=== PATIENT | male | born 1980 | race Caucasian/White ===

== ENCOUNTER 2017-11-12 20:40 | Emergency (ER) | payer SELFPAY ==
[2017-11-12 21:38] VITALS: BP 147/73
--- NOTE | 2017-11-12 23:06 | ER Document Report ---
ED Medical Screen (RME) - General Chief Complaint: Overdose Stated Complaint: POSSIBLE OVERDOSE Time Seen by Provider: 11/12/17 23:05 Mode of Arrival: Ambulatory Information source: Law Enforcement Notes: 37-year-old male presents to ED for taking 1 Suboxone while in police custody. He states he takes Suboxone on a regular basis and while in the process of getting arrested he was beat up and in pain so he took his Suboxone. The police brought him to the emergency room to get cleared. He states he took the Suboxone about 7 PM. He says he is not having any side effects he takes this on a regular basis and he did not want to get sick is why he took it. I have greeted and performed a rapid initial assessment of this patient. A comprehensive ED assessment and evaluation of the patient, analysis of test results and completion of medical decision making process will be conducted by an additional ED providers. TRAVEL OUTSIDE OF THE [place] IN LAST 30 DAYS: No Physical Exam - Vital signs Vitals: Temp Pulse Resp BP Pulse Ox 98.0 F 70 12 147/73 H 97 11/12/17 21:36 11/12/17 21:36 11/12/17 21:36 11/12/17 21:36 11/12/17 21:36 Course - Vital Signs Vital signs: Temp Pulse Resp BP Pulse Ox 98.0 F 70 12 147/73 H 97 11/12/17 21:36 11/12/17 21:36 11/12/17 21:36 11/12/17 21:36 11/12/17 21:36
[2017-11-13] LABS: APPEARANCE,URINE CLEAR; BILIRUBIN,URINE NEGATIVE (NEGATIVE); COLOR,URINE YELLOW; GLUCOSE, URINE NEGATIVE (NEGATIVE); KETONES,URINE NEGATIVE (NEGATIVE); LEUKOCYTE ESTERASE,URINE NEGATIVE (NEGATIVE); NITRITE,URINE NEGATIVE (NEGATIVE); PROTEIN,URINE NEGATIVE (NEGATIVE); URINE SPECIFIC GRAVITY 1.014; UROBILINOGEN,URINE NEGATIVE mg/dL (<2.0)
[2017-11-13 00:14] LABS: URINE BARBITURATES SCREEN NEGATIVE; URINE BENZODIAZEPINES SCREEN NEGATIVE; URINE COCAINE SCREEN NEGATIVE; URINE MARIJUANA (THC) SCREEN NEGATIVE; URINE METHADONE SCREEN NEGATIVE; URINE PHENCYCLIDINE SCREEN NEGATIVE
--- NOTE | 2017-11-13 00:26 | ER Document Report ---
HPI - HPI Pain Level: Denies Notes: Patient is a 37-year-old male with a history of chronic narcotic issues who presents the ED with [facility] for a medical clearance. Sure states that patient took a Suboxone just prior to being arrested. According to the patient he has been on Suboxone chronically and wanted to take it as he was in pain and did not want to go through any withdrawal symptoms. Otherwise he has no other concerns or complaints and is feeling well. No SI/HI. Patient states that he has been eating and drinking without difficulties. He is urinating normally and having normal bowel movements. Denies any headache, fever, head injury, neck pain, LOC, changes in vision/speech/mentation/hearing, URI, sore throat, chest pain, palpitations, syncope, cough, shortness of breath, wheeze, dyspnea, abdominal pain, nausea/vomiting/diarrhea, urinary retention, dysuria, hematuria, loss of control of bowel or bladder, numbness/tingling, saddle anesthesia, muscle paralysis/weakness, or rash. - ROS Systems Reviewed and Negative: Yes All other systems reviewed and negative Past Medical History - General Information source: Law Enforcement - Social History Smoking Status: Unknown if Ever Smoked Family History: Reviewed & Not Pertinent Vertical Provider Document - CONSTITUTIONAL Agree With Documented VS: Yes Notes: PHYSICAL EXAMINATION: GENERAL: Well-appearing, well-nourished and in no acute distress. A&Ox4. Answers questions appropriately. HEAD: Atraumatic, normocephalic. EYES: Pupils equal round and reactive to light, extraocular movements intact, sclera anicteric, conjunctiva are normal. ENT: EAC clear b/l. TM's intact b/l without erythema, fluid, or perforation. Nares patent and without discharge. oropharynx clear without exudates. No tonsilar hypertrophy or erythema. Moist mucous membranes. No sinus tenderness. NECK: Normal range of motion, supple without lymphadenopathy LUNGS: Breath sounds clear to auscultation bilaterally and equal. No wheezes rales or rhonchi. HEART: Regular rate and rhythm without murmurs, rubs, gallops. ABDOMEN: Soft, nontender, nondistended abdomen. No guarding, no rebound. No masses appreciated. Normal bowel sounds present. No CVA tenderness bilaterally. Musculoskeletal: FROM to passive/active. Strength 5+/5. Extremities: No cyanosis, clubbing, or edema b/l. Peripheral pulses 2+. Capillary refill less than 3 seconds. NEUROLOGICAL: MMSE intact. Cranial nerves grossly intact. Normal speech, normal gait. Normal sensory, motor exams PSYCH: Normal mood, normal affect. SKIN: Warm, Dry, normal turgor, no rashes or lesions noted. - INFECTION CONTROL TRAVEL OUTSIDE OF THE [place] IN LAST 30 DAYS: No - RESPIRATORY O2 Sat by Pulse Oximetry: 97 Course - Re-evaluation Re-evalutation: 11/13/17 00:31 Patient is an afebrile, well-hydrated, 37-year-old male who presents ED for a worried well visit. Vitals are stable. PE is otherwise unremarkable. Urinalysis was unremarkable for any acute pathology. Urine drug screen was performed and opiates was noted. Patient does take Suboxone as well. No other labs or imaging warranted at this time based on H&P. No other lab testing warranted. No SI/HI. No other acute systemic condition suspected at this time. Recheck with a provider in 3-5 days. Return to the ED with any worsening /concerning symptoms otherwise as reviewed discharge. 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 - Vital Signs Vital signs: Temp Pulse Resp BP Pulse Ox 98.0 F 70 12 147/73 H 97 11/12/17 21:36 11/12/17 21:36 11/12/17 21:36 11/12/17 21:36 11/12/17 21:36 Discharge - Discharge Clinical Impression: Worried well Condition: Stable Disposition: HOME, SELF-CARE Additional Instructions: Maintain adequate fluid and food intake Tylenol/Motrin if needed Recheck with provider in 2-3 days Return to the ED with any worsening symptoms and/or development of fever, headache, chest pain, palpitations, syncope, shortness of breath, trouble breathing, abdominal pain, n/v/d, blood in stool/urine, loss of control of bowel /bladder, urinary retention, muscle weakness/paralysis, saddle anesthesia, numbness/tingling, or other worsening symptoms that are concerning to you. Forms: Elevated Blood Pressure Referrals: [facility] [Provider Group] - Follow up as needed [facility] [Provider Group] - Follow up as needed
== END 2017-11-13 00:38 | disposition home or self-care (01) ==
LOC: ER 20:40
DX: Z71.1 Person with feared health complaint in whom no diagnosis is made (principal); F19.10 Other psychoactive substance abuse, uncomplicated; Z79.899 Other long term (current) drug therapy
CPT/HCPCS: 80307; 81001; 99283

== ENCOUNTER 2020-08-21 11:02 | Emergency (ER) | payer SELFPAY ==
[2020-08-21] MEDS ORDERED: HYDROCODONE/ACETAMINOPHEN 5-325 MG TABLET PO ONE (12:08)
--- NOTE | 2020-08-21 12:10 | ER Document Report ---
ED Medical Screen (RME) - General Chief Complaint: Arm Pain Stated Complaint: ARM SWOLLEN, SKIN PROBLEM Time Seen by Provider: 08/21/20 12:04 Mode of Arrival: Ambulatory Information source: Patient Notes: 40-year-old male presented to ED for red swollen tight right forearm. He states he was stung by a stingray a week ago he did not get follow-up treatment. He states that the arm started swelling about 3 days ago. He states within the last 24 hours he has noticed that the arm has been getting larger by the elbow. He states the pain is after changing. He has movement to the left fingers but states is hard to move them. His left hand is cold. Patient is alert oriented respirations regular nonlabored speaking in full sentences. I have told the charge nurse concerning the condition of this arm. I have asked her to get him a room promptly. I have greeted and performed a rapid initial assessment of this patient. A comprehensive ED assessment and evaluation of the patient, analysis of test results and completion of medical decision making process will be conducted by an additional ED providers. TRAVEL OUTSIDE OF THE [place] IN LAST 30 DAYS: No - Related Data Allergies/Adverse Reactions: No Known Allergies Allergy (Verified 08/21/20 12:06) Physical Exam - Vital signs Vitals: Temp Pulse Resp BP Pulse Ox 98.0 F 108 H 18 124/67 100 08/21/20 11:43 08/21/20 11:43 08/21/20 11:43 08/21/20 11:43 08/21/20 11:43 Course - Vital Signs Vital signs: Temp Pulse Resp BP Pulse Ox 98.0 F 108 H 18 124/67 100 08/21/20 11:43 08/21/20 11:43 08/21/20 11:43 08/21/20 11:43 08/21/20 11:43
--- NOTE | 2020-08-21 13:11 | RADIOLOGY REPORT (SQ) ---
EXAM DESCRIPTION: FOREARM RIGHT IMAGES COMPLETED DATE/TIME: 08/21/2020 12:40 pm REASON FOR STUDY: By stingray week ago now infected COMPARISON: None. NUMBER OF VIEWS: Two views. TECHNIQUE: Two radiographic images acquired of the right forearm, including elbow and wrist in at le ast one projection. LIMITATIONS: None. FINDINGS: MINERALIZATION: Normal. BONES: No acute fracture. No worrisome bone lesions. SOFT TISSUES: There is soft tissue swelling at the area marked. No radiopaque foreign body is seen. OTHER: No other significant finding. IMPRESSION: Soft tissue swelling. No foreign body is seen. No osseous abnormality. TECHNICAL DOCUMENTATION: JOB ID: [id number] 2010 CD[employer]- All Rights Reserved Reading location - IP/workstation name: [email or web address]
[2020-08-21 13:20] LABS: ABSOLUTE BASOPHILS # (AUTO) 0.1 10^3/uL (0.0-0.2); ABSOLUTE MONOCYTES (AUTO) 1.9 10^3/uL (0.1-1.4); ABSOLUTE NEUT (AUTO) 15.5 10^3/uL (1.7-8.2); BASOPHILS % (AUTO) 0.4 % (0-2); HEMATOCRIT 37.9 % (37.9-51.0); HEMOGLOBIN 12.8 g/dL (13.5-17.0); LYMPHOCYTES % (AUTO) 5.6 % (13-45); MEAN CORPUSCULAR HEMOGLOBIN 28.1 pg (27.0-33.4); MEAN CORPUSCULAR HGB CONC 33.7 g/dL (32.0-36.0); MEAN CORPUSCULAR VOLUME 84 fl (80-97); MONOCYTES % (AUTO) 10.3 % (3-13); PLATELET COUNT 206 10^3/uL (150-450); RED BLOOD COUNT 4.54 10^6/uL (4.35-5.55); RED CELL DISTRIBUTION WIDTH 13.5 % (11.5-14.0); SEGMENTED NEUTROPHILS % (AUTO) 83.7 % (42-78); TOTAL CELLS COUNTED % (AUTO) 100 %; WHITE BLOOD COUNT 18.6 10^3/uL (4.0-10.5)
[2020-08-21 13:40] LABS: ALBUMIN 3.8 g/dL (3.5-5.0); ALKALINE PHOSPHATASE 75 U/L (38-126); ANION GAP 9 (5-19); ASPARTATE AMINO TRANSFERASE 48 U/L (17-59); BILIRUBIN,DIRECT 0.1 mg/dL (0.0-0.4); BILIRUBIN,TOTAL 0.7 mg/dL (0.2-1.3); BLOOD UREA NITROGEN 16 mg/dL (7-20); CARBON DIOXIDE 28 mmol/L (22-30); CHLORIDE 98 mmol/L (98-107); GLUCOSE 130 mg/dL (75-110); POTASSIUM 4.2 mmol/L (3.6-5.0)
[2020-08-21] MEDS ORDERED: DIPH/PERTUSS(ACELL)/TETANUS VAC/PF 0.5 ML SYR (>=10YO) IM ONE (14:11)
[2020-08-21] MEDS ORDERED: KETOROLAC TROMETHAMINE 60 MG/2 ML SDV IM ONE (14:11)
[2020-08-21] MEDS ORDERED: CEFAZOLIN 2 GM/D5W RTU 2 GM/50 ML RTUPB IV ONE (14:15)
--- NOTE | 2020-08-21 14:21 | ER Document Report ---
ED General - General Chief Complaint: Arm Pain Stated Complaint: ARM SWOLLEN, SKIN PROBLEM Time Seen by Provider: 08/21/20 12:04 Mode of Arrival: Ambulatory TRAVEL OUTSIDE OF THE [place] IN LAST 30 DAYS: No - HPI Notes: Chief complaint: Infected wound from stingray History of present illness: 40-year-old male presented to ED for pain, redness and swelling of right forearm. He was reportedly stung by a stingray a week ago while surf fishing with his father locally he did not get follow-up treatment. He indicates that the arm started swelling about 3 days ago. Rapid progression of swelling proximally past 24 hours. Increasing pain which is currently rated 10/10. Pain aggravated by movement of fingers. Last tetanus booster greater than 5 years ago. No known allergies. No current medications. - Related Data Allergies/Adverse Reactions: No Known Allergies Allergy (Verified 08/21/20 12:06) Past Medical History - General Information source: Patient, [facility] Records - Social History Smoking Status: Never Smoker Frequency of alcohol use: None Drug Abuse: None Occupation: horticulture worker Family History: Reviewed & Not Pertinent - Medical History Medical History: Negative Review of Systems - Review of Systems Notes: Constitutional: Negative for fever. HENT: Negative for sore throat. Eyes: Negative for visual changes. Cardiovascular: Negative for chest pain. Respiratory: Negative for shortness of breath. Gastrointestinal: Negative for abdominal pain, vomiting or diarrhea. Genitourinary: Negative for dysuria. Musculoskeletal: As per HPI. Skin: Negative for rash. Neurological: Negative for headaches, weakness or numbness. 10 point ROS negative except as marked above and in HPI. Physical Exam - Vital signs Vitals: Temp Pulse Resp BP Pulse Ox 98.0 F 108 H 18 124/67 100 08/21/20 11:43 08/21/20 11:43 08/21/20 11:43 08/21/20 11:43 08/21/20 11:43 - General Notes: GENERAL: Slender male approximately stated age appears moderately uncomfortable. SKIN: Good turgor no rashes. HEAD: Normocephalic atraumatic. EYES: PERRLA. EOMI. Conjunctivae and sclerae clear. EARS: CANALS AND TMS CLEAR. NOSE: CLEAR. MOUTH: Moist mucosa. Good dentition. No stridor or edema. No drooling. NECK: Supple. No masses or thyromegaly. No adenopathy. Carotids 2+ without bruits. No JVD. BACK: Symmetrical without tenderness. CHEST: Respirations unlabored. Breath sounds clear and symmetrical. HEART: Regular rhythm. No murmur gallop or rub. ABDOMEN: Soft nontender without masses, organomegaly or rebound. Bowel sounds normally active. No bruits. GENITALIA: Deferred. EXTREMITIES: Patient has a 3.5 cm puncture wound mid radial aspect of right forearm with associated fluctuance, redness, tenderness and warmth. There is no spontaneous drainage. He has red streaking and edema extending proximally and distally. Distal sensation and capillary refill are intact. No edema. No calf tenderness. Cap refill less than 1.5 seconds. Dorsalis pedis and posterior tibial pulses 3+ and symmetrical. NEUROLOGICAL: GCS 15. Alert and oriented x3. Normal gait. Fluent speech. Cranial nerves II through XII intact. Sensorimotor and cerebellar normal. Normal tone. PSYCHIATRIC: Appropriate affect. Course - Re-evaluation Re-evalutation: 08/21/20 16:11 IV Ancef. Tetanus booster. IV Toradol. I&D. 08/21/20 16:18 Findings were discussed with on-call orthopedist, Dr. Rutherford, who agrees with current management and also with my plan to see this gentleman back tomorrow here for follow-up. Findings, clinical impression and plan of treatment have been discussed with patient/family. Understanding of current findings and recommendations has been acknowledged by them and there is agreement regarding disposition and follow-up. - Vital Signs Vital signs: Temp Pulse Resp BP Pulse Ox 98.0 F 108 H 18 124/67 100 08/21/20 11:43 08/21/20 11:43 08/21/20 11:43 08/21/20 11:43 08/21/20 11:43 - Laboratory Result Diagrams: 08/21/20 13:03 08/21/20 13:03 Laboratory results interpreted by me: 08/21/20 08/21/20 13:03 13:03 WBC 18.6 H Hgb 12.8 L Lymph % (Auto) 5.6 L Absolute Neuts (auto) 15.5 H Absolute Monos (auto) 1.9 H Seg Neutrophils % 83.7 H Sodium 135.2 L Glucose 130 H ALT 91 H Procedures - Incision and Drainage Right Lower Arm Time completed: 15:45 - I&D forearm abscess Type: Simple Anesthetic type: 1% Lidocaine mL's of anesthetic: 10 Blade size: 11 I&D procedure: Betadine prep applied, Shurclens applied, Iodoform packing placed Incision Method: Incision made by scalpel Amount/type of drainage: 10 Notes: 08/21/20 16:10 Irriagated 1 liter Sterile saline Discharge - Discharge Clinical Impression: Abscess of right forearm, Cellulitis of right forearm, Stingray envenomation Condition: Stable Disposition: HOME, SELF-CARE Instructions: Abscess ([facility]), Post Incision and Drainage, Oral Narcotic Medication ([facility]) Additional Instructions: Return here as needed for new or worsening symptoms: Pain that is worsening or unimproved Uncontrolled vomiting High fever or shaking chills Overall worsening Come to the emergency department tomorrow to be rechecked. Take prescribed medication as directed. Prescriptions: Doxycycline Monohydrate 100 mg PO BID #20 capsule Oxycodone HCl/Acetaminophen [Percocet 5-325 mg Tablet] 1 tab PO Q6H PRN 3 Days #15 tablet PRN Reason:
[2020-08-21] MEDS ORDERED: LIDOCAINE 1% INJ-PF (10 MG/ML) 30 ML SDV INJ ONE (14:36)
[2020-08-21 16:39] VITALS: BP 117/79
== END 2020-08-21 16:38 | disposition home or self-care (01) ==
LOC: ER 11:02
DX: L02.413 Cutaneous abscess of right upper limb (principal); T63.511A Toxic effect of contact with stingray, accidental (unintentional), initial encounter; L03.113 Cellulitis of right upper limb; Y92.832 Beach as the place of occurrence of the external cause; Z23 Encounter for immunization
CPT/HCPCS: 99284; 96372; 90471; 96365; 36415; 87040; 85025; 87077; 80053; 87150 ×26; 73090; 90715; 10060; J1885; J3490; J0690

== ENCOUNTER 2020-08-22 08:55 | Inpatient (IN) | payer OTHER ==
--- NOTE | 2020-08-22 09:39 | ER Document Report ---
ED General - General Chief Complaint: Wound Recheck Stated Complaint: WOUND RECHECK Time Seen by Provider: 08/22/20 09:39 Mode of Arrival: Ambulatory Information source: Patient Notes: Patient is a 40-year-old male presenting to the emergency department chief complaint of wound check. Patient states that about a week ago he was stung by a stingray he was seen here at this hospital yesterday for swelling to the right upper extremity had incision and drainage of the site however today states that the swelling is worse the pain is worse and is here for reevaluation. Patient further states that he has not been able to miner pick his prescription of antibiotics or pain medicine because of time constraints last evening. Patient has no other complaints no nausea vomiting diarrhea fevers chills cough or cold symptoms. TRAVEL OUTSIDE OF THE [place] IN LAST 30 DAYS: No - HPI Onset: Last week Onset/Duration: Persistent, Worse Quality of pain: Throbbing Severity: Moderate Pain Level: 4 Associated symptoms: None Exacerbated by: Movement Relieved by: Denies Similar symptoms previously: Yes Recently seen / treated by doctor: Yes - Related Data Allergies/Adverse Reactions: No Known Allergies Allergy (Verified 08/21/20 12:06) Past Medical History - General Information source: Patient, [facility] Records - Social History Smoking Status: Never Smoker Chew tobacco use (# tins/day): No Frequency of alcohol use: Rare Drug Abuse: None Family History: Reviewed & Not Pertinent Patient has suicidal ideation: No Patient has homicidal ideation: No Review of Systems - Review of Systems Constitutional: No symptoms reported EENT: No symptoms reported Cardiovascular: No symptoms reported Respiratory: No symptoms reported Gastrointestinal: No symptoms reported Genitourinary: No symptoms reported Male Genitourinary: No symptoms reported Musculoskeletal: See HPI Skin: No symptoms reported Hematologic/Lymphatic: See HPI Neurological/Psychological: No symptoms reported -: Yes All other systems reviewed and negative Physical Exam - Vital signs Vitals: Temp Pulse Resp BP Pulse Ox 98.8 F 84 18 123/62 100 08/22/20 08:59 08/22/20 08:59 08/22/20 08:59 08/22/20 08:59 08/22/20 08:59 - Notes Notes: PHYSICAL EXAMINATION: GENERAL: Well-appearing, well-nourished and in no acute distress. HEAD: Atraumatic, normocephalic. EYES: Pupils equal round and reactive to light, extraocular movements intact, sclera anicteric, conjunctiva are normal. ENT: nares patent, oropharynx clear without exudates. Moist mucous membranes. NECK: Normal range of motion, supple without lymphadenopathy, no appreciable JVD LUNGS: Lungs clear to auscultation bilaterally and equal. No wheezes rales or rhonchi. HEART: Tachycardic rate and rhythm without murmurs ABDOMEN: Soft, nontender, normal bowel sounds. No guarding, no rebound. No masses appreciated. EXTREMITIES: Active full range of motion x3, no pitting or edema. No cyanosis. 2+ pulses x4. Abnormality is right upper extremity is markedly swollen erythematous and painful both with and without palpation. Patient is only able to flex and extend at the digits approximately 1 cm capillary refill less than 3 seconds. The area of erythema is from the tip of the fingers to mid axillary. This area was marked with a pen. NEUROLOGICAL: No focal neurological deficits. Moves all extremities spontaneously and on command. SKIN: Warm, Dry, and intact. Normal turgor, no rashes or lesions noted. Except as stated above Course - Re-evaluation Re-evalutation: 08/22/20 11:17 At 11 AM I was able to speak with Dr. Rutherford orthopedics on-call he has requested that the patient have an MRI of the right upper extremity to evaluate for possible deep fluid collection. Shortly thereafter I spoke with the hospitalist who is going to come down and evaluate the patient. Subsequently I was able to walk-in and let the patient know his status as of right now I have reviewed his laboratory studies and patient is feeling somewhat better he is currently resting and is agreeable and aware of the need for admission. 08/22/20 11:43 At this time I spoke to the hospitalist who is agreeable with admission of the patient. Currently pending MRI of right upper extremity and evaluation by orthopedics. - Vital Signs Vital signs: Temp Pulse Resp BP Pulse Ox 98.8 F 84 18 123/62 100 08/22/20 08:59 08/22/20 08:59 08/22/20 08:59 08/22/20 08:59 08/22/20 08:59 - Laboratory Result Diagrams: 08/22/20 10:08 08/22/20 10:08 Laboratory results interpreted by me: 08/22/20 08/22/20 10:08 10:08 WBC 12.5 H Hgb 12.4 L Hct 36.6 L Lymph % (Auto) 6.7 L Absolute Neuts (auto) 10.3 H Seg Neutrophils % 82.8 H Sodium 132.2 L Glucose 138 H ALT 78 H Total Protein 6.1 L Albumin 3.2 L - Diagnostic Test Radiology reviewed: Pending, Reports reviewed Discharge - Discharge Clinical Impression: Cellulitis of right forearm, Swelling of right upper extremity Condition: Fair Disposition: ADMITTED OBSERVATION Admitting Provider: Renée (Hospitalist) Unit Admitted: Medical Floor
[2020-08-22] MEDS ORDERED: MORPHINE SULFATE 10 MG/ML INJ IV ONE ×2 (09:56→12:47)
[2020-08-22] MEDS ORDERED: ONDANSETRON HCL INJ/PF 4 MG/2 ML SDV IV ONE (09:56)
[2020-08-22] MEDS ORDERED: CEFTRIAXONE 1 GM/D5W RTU 1 GM/50 ML RTUPB IV ONE (10:04)
[2020-08-22 10:28] LABS: ABSOLUTE LYMPHOCYTES (AUTO) 0.8 10^3/uL (0.5-4.7); ABSOLUTE MONOCYTES (AUTO) 1.2 10^3/uL (0.1-1.4); ABSOLUTE NEUT (AUTO) 10.3 10^3/uL (1.7-8.2); BASOPHILS % (AUTO) 0.4 % (0-2); EOSINOPHILS % (AUTO) 0.1 % (0-6); HEMATOCRIT 36.6 % (37.9-51.0); HEMOGLOBIN 12.4 g/dL (13.5-17.0); LYMPHOCYTES % (AUTO) 6.7 % (13-45); MEAN CORPUSCULAR HEMOGLOBIN 28.1 pg (27.0-33.4); MEAN CORPUSCULAR HGB CONC 33.9 g/dL (32.0-36.0); MEAN CORPUSCULAR VOLUME 83 fl (80-97); PLATELET COUNT 190 10^3/uL (150-450); RED BLOOD COUNT 4.42 10^6/uL (4.35-5.55); RED CELL DISTRIBUTION WIDTH 13.6 % (11.5-14.0); SEGMENTED NEUTROPHILS % (AUTO) 82.8 % (42-78); TOTAL CELLS COUNTED % (AUTO) 100 %; WHITE BLOOD COUNT 12.5 10^3/uL (4.0-10.5)
[2020-08-22 10:42] LABS: INTERNATIONAL RATION (INR) 1.19; PROTHROMBIN TIME 15.3 SEC (11.4-15.4)
[2020-08-22 10:51] LABS: ALBUMIN 3.2 g/dL (3.5-5.0); ALKALINE PHOSPHATASE 72 U/L (38-126); ANION GAP 7 (5-19); ASPARTATE AMINO TRANSFERASE 45 U/L (17-59); BILIRUBIN,DIRECT 0.2 mg/dL (0.0-0.4); BILIRUBIN,TOTAL 0.6 mg/dL (0.2-1.3); BLOOD UREA NITROGEN 12 mg/dL (7-20); CALCIUM 8.5 mg/dL (8.4-10.2); CARBON DIOXIDE 26 mmol/L (22-30); CHLORIDE 99 mmol/L (98-107); GLUCOSE 138 mg/dL (75-110); POTASSIUM 3.8 mmol/L (3.6-5.0); TOTAL PROTEIN 6.1 g/dL (6.3-8.2)
[2020-08-22] MEDS ORDERED: ACETAMINOPHEN 325 MG TABLET PO PRN (11:41)
[2020-08-22] MEDS ORDERED: CEFAZOLIN 2 GM/D5W RTU 2 GM/50 ML RTUPB IV SCH (12:00)
[2020-08-22] MEDS: DOXYCYCLINE HYCLATE 100 MG in DEXTROSE 5%-WATER 250 ML IV SCH ×2 (13:13→22:08)
--- NOTE | 2020-08-22 14:50 | PDOC CONSULTATION ---
Consultation Consult Date: 08/22/20 Provider Consulted: BILLIE GRIFFIN History of Present Illness Admission Date/PCP: 08/22/20 12:04 Patient complains of: Right forearm infection History of Present Illness: JOSE THOMAS is a 40 year old male who sustained a puncture wound to his right forearm this past weekend he then presented to emergency room yesterday 08/21/2020 with a superficial abscess. Bedside irrigation debridement was performed and patient was started on doxycycline. Patient states over the next 24 hours his symptoms did not improve continued to have significant pain swelling and redness. Patient presents emergency room once again where he was started on IV antibiotics he states these antibiotics did improve his pain although continues to have swelling and redness. Denies numbness or tingling but has difficulty moving his finger secondary to the pain. Pain 5/5. Notes fever and chills. Social History Smoking Status: Never Smoker Family History Family History: Reviewed & Not Pertinent Parental Family History Reviewed: No Children Family History Reviewed: No Sibling(s) Family History Reviewed.: No Medication/Allergy Home Medications: Doxycycline Monohydrate 100 mg PO BID #20 capsule 08/21/20 Oxycodone HCl/Acetaminophen [Percocet 5-325 mg Tablet] 1 tab PO Q6H PRN 3 Days #15 tablet 08/21/20 Allergies/Adverse Reactions: No Known Allergies Allergy (Verified 08/21/20 12:06) Review of Systems Constitutional: PRESENT: as per HPI. ABSENT: chills, fever(s), headache(s), weight gain, weight loss Eyes: ABSENT: visual disturbances Ears: ABSENT: hearing changes Cardiovascular: ABSENT: chest pain, dyspnea on exertion, edema, orthropnea, palpitations Respiratory: ABSENT: cough, hemoptysis Gastrointestinal: ABSENT: abdominal pain, constipation, diarrhea, hematemesis, hematochezia, nausea, vomiting Genitourinary: ABSENT: dysuria, hematuria Integumentary: ABSENT: rash, wounds Neurological: ABSENT: abnormal gait, abnormal speech, confusion, dizziness, focal weakness, syncope Psychiatric: ABSENT: anxiety, depression, homidical ideation, suicidal ideation Endocrine: ABSENT: cold intolerance, heat intolerance, menstrual abnormalities, polydipsia, polyuria Hematologic/Lymphatic: ABSENT: easy bleeding, easy bruising, lymphadenopathy Physical Exam Vital Signs: Temp Pulse Resp BP Pulse Ox 99.5 F 76 15 112/53 L 98 08/22/20 13:22 08/22/20 13:22 08/22/20 13:22 08/22/20 13:22 08/22/20 13:22 Intake & Output 08/21/20 08/22/20 08/23/20 06:59 06:59 06:59 Intake Total 50 Balance 50 Weight 86.2 kg General appearance: PRESENT: no acute distress, well-developed, well-nourished Head exam: PRESENT: atraumatic, normocephalic Eye exam: PRESENT: conjunctiva pink, EOMI, PERRLA. ABSENT: scleral icterus Ear exam: PRESENT: normal external ear exam Mouth exam: PRESENT: moist, tongue midline Neck exam: PRESENT: full ROM. ABSENT: carotid bruit, JVD, lymphadenopathy, thyromegaly Cardiovascular exam: PRESENT: RRR. ABSENT: diastolic murmur, rubs, systolic murmur Pulses: PRESENT: normal dorsalis pedis pul, +2 pedal pulses bilateral Vascular exam: PRESENT: normal capillary refill GI/Abdominal exam: PRESENT: normal bowel sounds, soft. ABSENT: distended, guarding, mass, organolmegaly, rebound, tenderness Rectal exam: PRESENT: deferred Musculoskeletal exam: PRESENT: other - compressible no sign of compartment s yndrome. Additional comments: Right forearm: 3 cm incision noted along the dorsal aspect of the forearm with surrounding erythema. Erythema improving compared to demarcated area. Palpable axillary lymph node. Tenderness with palpation. Compartments swollen but compressible no sign of compartment syndrome. Intact IP/MP flexion/extension. EPL/FPL intact however patient unable to make full composite fist. Radial pulse 2+. Cap refill less than 2 seconds. Mild pain posteriorly with passive stretch. Neurological exam: PRESENT: alert, awake, oriented to person, oriented to place, oriented to time, oriented to situation, CN II-XII grossly intact. ABSENT: motor sensory deficit Psychiatric exam: PRESENT: appropriate affect, normal mood. ABSENT: homicidal ideation, suicidal ideation Skin exam: PRESENT: dry, intact, warm. ABSENT: cyanosis, rash Results Laboratory Results: 08/22/20 10:08 08/22/20 10:08 08/22/20 08/22/20 08/22/20 10:08 10:08 10:08 WBC 12.5 H RBC 4.42 Hgb 12.4 L Hct 36.6 L MCV 83 MCH 28.1 MCHC 33.9 RDW 13.6 Plt Count 190 Seg Neutrophils % 82.8 H Sodium 132.2 L Potassium 3.8 Chloride 99 Carbon Dioxide 26 Anion Gap 7 BUN 12 Creatinine 0.58 Est GFR ( Amer) > 60 Glucose 138 H Lactic Acid 1.6 Calcium 8.5 Total Bilirubin 0.6 AST 45 Alkaline Phosphatase 72 Total Protein 6.1 L Albumin 3.2 L Assessment & Plan - Diagnosis (1) Abscess of right forearm Is this a current diagnosis for this admission?: Yes Plan: Patient has evidence of persistent right forearm abscess despite irrigation and debridement yesterday the emergency room his symptoms have worsened. At this point I have recommended obtaining MRI to evaluate for deeper fluid collection in the meantime he only should be prepared for surgery which would include irrigation Erin of the right forearm. Risk and benefits of surgical procedure have been explained patient is verbalized understanding consented for surgical p rocedure. Risk of surgical procedure neurovascular is, postoperative pain, postoperative stiffness, worsening infection requiring additional surgical intervention. Rapid Covid test will be performed in anticipation for surgical procedure. Patient will be admitted for IV antibiotics as well.
[2020-08-22] MEDS: CEFAZOLIN SODIUM 2 GM in DEXTROSE 5%-WATER 100 ML IV SCH ×2 (15:19→22:07)
[2020-08-22] MEDS ORDERED: FENTANYL CITRATE INJ/PF 100 MCG/2 ML AMPUL ONE (17:20)
[2020-08-22] MEDS ORDERED: MIDAZOLAM 2 MG/2 ML INJ ONE (17:20)
[2020-08-22] MEDS ORDERED: PROPOFOL INJ 200 MG/20 ML VIAL IV ONE (17:21)
[2020-08-22] MEDS ORDERED: BUPIVACAINE HCL 0.5 % INJ/PF 30 ML SDV ONE (17:22)
[2020-08-22] MEDS ORDERED: BACITRACIN INJ 50,000 UNIT VIAL ONE (17:23)
[2020-08-22] MEDS ORDERED: PROMETHAZINE HCL INJ 25 MG/1 ML VIAL IV PRN ×2 (17:57)
[2020-08-22] MEDS ORDERED: DIPHENHYDRAMINE HCL 50 MG/ML VIAL IV PRN (17:57)
[2020-08-22] MEDS ORDERED: FENTANYL CITRATE INJ/PF 100 MCG/2 ML AMPUL IV PRN ×3 (17:57)
[2020-08-22] MEDS ORDERED: ONDANSETRON HCL INJ/PF 4 MG/2 ML SDV IV PRN ×2 (17:57→18:18)
[2020-08-22] MEDS ORDERED: MORPHINE SULFATE 10 MG/ML INJ IV PRN (17:57)
[2020-08-22] MEDS ORDERED: MEPERIDINE HCL/PF INJ 25 MG/1 ML DISP.SYRIN IV PRN (17:57)
--- NOTE | 2020-08-22 18:23 | Operative Report ---
Operative Report DATE OF SURGERY: 08/22/20 PREOPERATIVE DIAGNOSIS: Right forearm abscess POSTOPERATIVE DIAGNOSIS: Same OPERATION: Irrigation and debridement right forearm abscess SURGEON: BILLIE GRIFFIN ANESTHESIA: GA TISSUE REMOVED OR ALTERED: Aerobic anaerobic cultures COMPLICATIONS: None ESTIMATED BLOOD LOSS: Minimal PROCEDURE: Indication for above procedure: 40-year-old male who apparently sustained a stingray injury to his right forearm. Was seen at the emergency room where bedside irrigation debridement was performed however patient continued to have discomfort and swelling thus was admitted to the hospital service given patient's worsening swelling decision was made to proceed with operative intervention risk and benefits of surgical procedure were explained patient verbalized understanding consented for surgery procedure. Procedure In Detail: Patient was seen and evaluated in the preoperative holding area. The RIGHT upper extremity was initialized and marked. Patient received 2g of Ancef IV for bacterial prophylaxis. Patient was taken back to the operative room where transferred to the operative table and placed under general anesthesia. Once they were adequately anesthetized a nonsterile tourniquet was placed on the upper extremity. A surgical team debriefing was performed ensuring all instrumentation was available, the surgical procedure was discussed with possible concerns reviewed. The upper extremity was prepped with Betadine and draped in a sterile fashion. A timeout was done identifying correct patient, procedure and extremity everyone in attendance agree with this and verbalized no concerns. The extremity was elevated the tourniquet was inflated to 250 mmHg. Previous incision was extended proximally and distally 3 cm respectively. Blunt dissection was performed. There was injury to a small branch of the posterior cutaneous nerve of the forearm adjacent to the saphenous vein. Small venous tributaries were coagulated with cautery. The defect within the fascia along the ECRB and ECRL was then opened. Approximately 8 cc of purulent material was expressed there is no evidence of deep track to the bone or deep to the fascia of the extensor mechanism. There is no tracking proximal to the forearm or along the volar compartments. Any nonviable tissue deep to the fascia was excised. Aerobic and anaerobic cultures were obtained. Wound was irrigated with 1 L of normal saline with bacitracin. Tourniquet was then deflated. Residual peripheral bleeding was controlled with cautery. Skin incision was closed with interrupted 3-0 nylon suture and a [place] drain placed along the central aspect of the wound. Xeroform, gauze and soft dressing was placed. Sponge counts, instrument counts, needle counts were correct. Patient was then awoken from anesthesia. Transferred from the operating room table to the operating room stretcher. There was no intraoperative complications patient tolerated procedure well stable to PACU. Postop plan: Patient will continue on IV antibiotics until he sees clinical improvement plan will be for drain removal in 48 hours possibly discharge in 48-72 hours.
[2020-08-22] MEDS: MORPHINE SULFATE 10 MG/ML INJ ONE ×3 (18:36→18:50)
[2020-08-22] MEDS: OXYCODONE-ACETAMINOPHEN 5-325 MG TABLET PO PRN (21:56)
--- NOTE | 2020-08-22 22:03 | RADIOLOGY REPORT (SQ) ---
MR UPPER EXTREMITY WITHOUT THEN WITH IV CONTRAST HISTORY: Stingray injury. Drainage and wound in the right forearm. COMPARISON: None. TECHNIQUE: Multiplanar, multisequence MR imaging of the right forearm was performed without and with the administration of intravenous gadolinium. FINDINGS: There is diffuse subcutaneous edema with enhancement throughout the right forearm. There are multiple areas of nonenhancement, however no discrete rim-enhancing fluid collection is identified. There is surgical packing material within the dorsal subcutaneous tissues of the mid forearm. No evidence of acute fracture or osteomyelitis. There is no abnormal intramuscular signal. The visualized tendons are intact. IMPRESSION: 1. Diffuse edema overlying the right forearm which may represent cellulitis, but without evidence of abscess. 2. Surgical packing material within the subcutaneous tissues of the dorsal mid forearm. No additional foreign body is seen.
[2020-08-23] MEDS: MORPHINE SULFATE 10 MG/ML INJ IV PRN ×2 (02:06→22:57)
[2020-08-23] MEDS: CEFAZOLIN SODIUM 2 GM in DEXTROSE 5%-WATER 100 ML IV SCH ×4 (03:38→21:07)
[2020-08-23] MEDS: OXYCODONE-ACETAMINOPHEN 5-325 MG TABLET PO PRN ×3 (04:47→17:58)
[2020-08-23 05:26] LABS: HEMATOCRIT 38.3 % (37.9-51.0); HEMOGLOBIN 12.8 g/dL (13.5-17.0); MEAN CORPUSCULAR HEMOGLOBIN 27.8 pg (27.0-33.4); MEAN CORPUSCULAR HGB CONC 33.4 g/dL (32.0-36.0); MEAN CORPUSCULAR VOLUME 83 fl (80-97); PLATELET COUNT 220 10^3/uL (150-450); RED CELL DISTRIBUTION WIDTH 13.6 % (11.5-14.0); WHITE BLOOD COUNT 15.6 10^3/uL (4.0-10.5)
[2020-08-23 06:17] LABS: ANION GAP 13 (5-19); BLOOD UREA NITROGEN 7 mg/dL (7-20); CALCIUM 9.1 mg/dL (8.4-10.2); CARBON DIOXIDE 24 mmol/L (22-30); CHLORIDE 102 mmol/L (98-107); GLUCOSE 119 mg/dL (75-110); POTASSIUM 4.5 mmol/L (3.6-5.0)
--- NOTE | 2020-08-23 07:44 | PDOC PROGRESS REPORT ---
Subjective Date:: 08/23/20 Subjective:: Patient seen and examined morning. Reports continued pain. No acute events ove rnight. Reason For Visit: RIGHT ARM CELLULITIS Physical Exam Vital Signs: Temp Pulse Resp BP Pulse Ox 97.6 F 58 L 16 115/65 100 08/23/20 03:30 08/23/20 03:30 08/23/20 03:30 08/23/20 03:30 08/23/20 03:30 Intake & Output 08/22/20 08/23/20 08/24/20 06:59 06:59 06:59 Intake Total 2950 Output Total 1805 Balance 1145 Weight 80.7 kg Physical Exam: No acute distress, no x3 Right upper extremity sensation grossly intact to radial median and ulnar nerve. upper extremity motor function grossly intact to radian median ulnar nerve AIN and PIN Pulses 2+, capillary refill less than 2 seconds Compartments soft Dressing clean dry and intact Results Laboratory Results: 08/23/20 04:18 08/23/20 04:18 08/22/20 08/22/20 08/22/20 10:08 10:08 10:08 WBC 12.5 H RBC 4.42 Hgb 12.4 L Hct 36.6 L MCV 83 MCH 28.1 MCHC 33.9 RDW 13.6 Plt Count 190 Seg Neutrophils % 82.8 H Sodium 132.2 L Potassium 3.8 Chloride 99 Carbon Dioxide 26 Anion Gap 7 BUN 12 Creatinine 0.58 Est GFR ( Amer) > 60 Glucose 138 H Lactic Acid 1.6 Calcium 8.5 Total Bilirubin 0.6 AST 45 Alkaline Phosphatase 72 Total Protein 6.1 L Albumin 3.2 L 08/23/20 08/23/20 04:18 04:18 WBC 15.6 H RBC 4.60 Hgb 12.8 L Hct 38.3 MCV 83 MCH 27.8 MCHC 33.4 RDW 13.6 Plt Count 220 Seg Neutrophils % Sodium 139.1 Potassium 4.5 Chloride 102 Carbon Dioxide 24 Anion Gap 13 BUN 7 Creatinine 0.59 Est GFR ( Amer) > 60 Glucose 119 H Lactic Acid Calcium 9.1 Total Bilirubin AST Alkaline Phosphatase Total Protein Albumin Impressions: Upper Extremity MRI 08/22/20 11:06 IMPRESSION: 1. Diffuse edema overlying the right forearm which may represent cellulitis, but without evidence of abscess. 2. Surgical packing material within the subcutaneous tissues of the dorsal mid forearm. No additional foreign body is seen. Assessment & Plan - Diagnosis (1) Abscess of right forearm Is this a current diagnosis for this admission?: Yes Plan: We will follow cultures Multimodal pain control Potentially remove drain tomorrow and allow for discharge pending microbiology results. Encourage range of motion and use of the right upper extremity - Time Time Spent with patient: Less than 15 minutes
[2020-08-23] MEDS: KETOROLAC TROMETHAMINE INJ/PF 30 MG/1 ML SDV IV SCH ×3 (08:56→21:06)
[2020-08-23] MEDS: DOXYCYCLINE HYCLATE 100 MG in DEXTROSE 5%-WATER 250 ML IV SCH ×2 (11:04→22:48)
--- NOTE | 2020-08-23 15:51 | PDOC PROGRESS REPORT ---
Subjective Date:: 08/23/20 Reason For Visit: RIGHT ARM CELLULITIS Physical Exam Vital Signs: Temp Pulse Resp BP Pulse Ox 97.3 F 57 L 20 102/52 L 99 08/23/20 11:19 08/23/20 11:19 08/23/20 11:19 08/23/20 11:19 08/23/20 11:19 Intake & Output 08/22/20 08/23/20 08/24/20 06:59 06:59 06:59 Intake Total 2950 Output Total 1805 Balance 1145 Weight 80.7 kg General appearance: PRESENT: no acute distress, well-developed, well-nourished Head exam: PRESENT: atraumatic, normocephalic Eye exam: PRESENT: conjunctiva pink, EOMI, PERRLA. ABSENT: scleral icterus Ear exam: PRESENT: normal external ear exam Mouth exam: PRESENT: moist, tongue midline Neck exam: ABSENT: carotid bruit, JVD, lymphadenopathy, thyromegaly Respiratory exam: PRESENT: clear to auscultation sean. ABSENT: rales, rhonchi, wheezes Cardiovascular exam: PRESENT: RRR, +S1, +S2. ABSENT: diastolic murmur, rubs, systolic murmur Pulses: PRESENT: normal dorsalis pedis pul Vascular exam: PRESENT: normal capillary refill GI/Abdominal exam: PRESENT: normal bowel sounds, soft. ABSENT: distended, guarding, mass, organolmegaly, rebound, tenderness Rectal exam: PRESENT: deferred Extremities exam: PRESENT: other - RUE in dressing. ABSENT: calf tenderness, clubbing, pedal edema Neurological exam: PRESENT: alert, awake, oriented to person, oriented to place, oriented to time, oriented to situation, CN II-XII grossly intact. ABSENT: motor sensory deficit Psychiatric exam: PRESENT: appropriate affect, normal mood. ABSENT: homicidal ideation, suicidal ideation Skin exam: PRESENT: dry, intact, warm. ABSENT: cyanosis, rash Results Laboratory Results: 08/23/20 04:18 08/23/20 04:18 08/23/20 08/23/20 04:18 04:18 WBC 15.6 H RBC 4.60 Hgb 12.8 L Hct 38.3 MCV 83 MCH 27.8 MCHC 33.4 RDW 13.6 Plt Count 220 Sodium 139.1 Potassium 4.5 Chloride 102 Carbon Dioxide 24 Anion Gap 13 BUN 7 Creatinine 0.59 Est GFR ( Amer) > 60 Glucose 119 H Calcium 9.1 08/22/20 09:50 Arm - Right Gram Stain - Final Impressions: Upper Extremity MRI 08/22/20 11:06 IMPRESSION: 1. Diffuse edema overlying the right forearm which may represent cellulitis, but without evidence of abscess. 2. Surgical packing material within the subcutaneous tissues of the dorsal mid forearm. No additional foreign body is seen. Assessment and Plan - Diagnosis (1) Cellulitis of right forearm Is this a current diagnosis for this admission?: Yes (2) Abscess of right forearm Is this a current diagnosis for this admission?: Yes - Plan Summary Summary: His wound culture is currently growing gram-positive cocci in clusters as well as gram-negative rods. Current blood culture is currently negative however patient had blood culture on 21 August which grew Georgina Krusei. He is status post I&D of the right forearm abscess. He is on cefazolin although I do not have the sensitivities back yet. Fairly concerned that he is not on MRSA coverage however since he seems to be relatively stable I will follow the cultures closely and change antibiotics as needed. Patient also noted to have positive blood cultures for Georgina however he has absolutely no clinical symptoms I will suggest to fungemia. Blood cultures done the very next day is currently negative. Patient has not been treated with any antifungal agents. - Time Time Spent with patient: 15-24 minutes Medications reviewed and adjusted accordingly: Yes Anticipated Discharge Disposition: Home, Self Care Anticipated Discharge Timeframe: within 72 hours
[2020-08-24] MEDS: OXYCODONE-ACETAMINOPHEN 5-325 MG TABLET PO PRN ×2 (01:51→23:35)
[2020-08-24] MEDS: KETOROLAC TROMETHAMINE INJ/PF 30 MG/1 ML SDV IV SCH ×4 (03:23→21:57)
[2020-08-24] MEDS: CEFAZOLIN SODIUM 2 GM in DEXTROSE 5%-WATER 100 ML IV SCH (03:24)
[2020-08-24] MEDS ORDERED: MELATONIN 5 MG TABLET PO PRN (04:22)
[2020-08-24 05:24] LABS: HEMATOCRIT 36.6 % (37.9-51.0); HEMOGLOBIN 12.5 g/dL (13.5-17.0); MEAN CORPUSCULAR HEMOGLOBIN 28.6 pg (27.0-33.4); MEAN CORPUSCULAR HGB CONC 34.2 g/dL (32.0-36.0); MEAN CORPUSCULAR VOLUME 84 fl (80-97); PLATELET COUNT 232 10^3/uL (150-450); RED BLOOD COUNT 4.37 10^6/uL (4.35-5.55); RED CELL DISTRIBUTION WIDTH 13.6 % (11.5-14.0); WHITE BLOOD COUNT 10.5 10^3/uL (4.0-10.5)
[2020-08-24 05:40] LABS: ANION GAP 11 (5-19); BLOOD UREA NITROGEN 11 mg/dL (7-20); CALCIUM 8.9 mg/dL (8.4-10.2); CARBON DIOXIDE 25 mmol/L (22-30); CHLORIDE 103 mmol/L (98-107); GLUCOSE 112 mg/dL (75-110)
[2020-08-24] MEDS ORDERED: VANCOMYCIN HCL 0 MG in DEXTROSE 5%-WATER 250 ML IV NR (07:45)
[2020-08-24] MEDS: DOXYCYCLINE HYCLATE 100 MG in DEXTROSE 5%-WATER 250 ML IV SCH ×2 (09:25→21:58)
--- NOTE | 2020-08-24 10:43 | PDOC PROGRESS REPORT ---
Subjective Date:: 08/24/20 Subjective:: Appears to be having some withdrawal symptoms at this time. Is a heavy IV drug a buse as well as oral fentanyl abuser Reason For Visit: RIGHT ARM CELLULITIS Physical Exam Vital Signs: Temp Pulse Resp BP Pulse Ox 97.3 F 55 L 20 117/68 100 08/24/20 07:37 08/24/20 07:37 08/24/20 07:37 08/24/20 07:37 08/24/20 07:37 Intake & Output 08/23/20 08/24/20 08/25/20 06:59 06:59 06:59 Intake Total 2950 1000 Output Total 1805 500 Balance 1145 500 Weight 80.7 kg 79.9 kg General appearance: PRESENT: no acute distress, well-nourished Head exam: PRESENT: atraumatic, normocephalic Eye exam: PRESENT: conjunctiva pink, EOMI, PERRLA. ABSENT: scleral icterus Ear exam: PRESENT: normal external ear exam Mouth exam: PRESENT: moist, tongue midline Neck exam: ABSENT: carotid bruit, JVD, lymphadenopathy, thyromegaly Respiratory exam: PRESENT: clear to auscultation sean. ABSENT: rales, rhonchi, wheezes Cardiovascular exam: PRESENT: RRR, +S1, +S2. ABSENT: diastolic murmur, rubs, systolic murmur Pulses: PRESENT: normal dorsalis pedis pul Vascular exam: PRESENT: normal capillary refill GI/Abdominal exam: PRESENT: normal bowel sounds, soft. ABSENT: distended, guarding, mass, organolmegaly, rebound, tenderness Rectal exam: PRESENT: deferred Extremities exam: PRESENT: other - RUE swelling, dressing, mobile fingers. ABSENT: calf tenderness, clubbing, pedal edema Musculoskeletal exam: PRESENT: ambulatory Neurological exam: PRESENT: alert, awake, oriented to person, oriented to place, oriented to time, oriented to situation, CN II-XII grossly intact. ABSENT: motor sensory deficit Psychiatric exam: PRESENT: appropriate affect, normal mood. ABSENT: homicidal ideation, suicidal ideation Skin exam: PRESENT: dry, intact, warm. ABSENT: cyanosis, rash Results Laboratory Results: 08/24/20 04:05 08/24/20 04:05 08/24/20 08/24/20 04:05 04:05 WBC 10.5 RBC 4.37 Hgb 12.5 L Hct 36.6 L MCV 84 MCH 28.6 MCHC 34.2 RDW 13.6 Plt Count 232 Sodium 138.5 Potassium 4.0 Chloride 103 Carbon Dioxide 25 Anion Gap 11 BUN 11 Creatinine 0.56 Est GFR ( Amer) > 60 Glucose 112 H Calcium 8.9 08/22/20 09:50 Arm - Right Gram Stain - Final 08/22/20 09:50 Arm - Right Wound Culture - Final Mrsa (Meth Resis Staph Aureus) Serratia Marcescens 08/22/20 18:00 Forearm - Right Gram Stain - Final 08/22/20 18:00 Forearm - Right Wound Culture - Final Mrsa (Meth Resis Staph Aureus) Serratia Marcescens No Anaerobic Organisms Impressions: Upper Extremity MRI 08/22/20 11:06 IMPRESSION: 1. Diffuse edema overlying the right forearm which may represent cellulitis, but without evidence of abscess. 2. Surgical packing material within the subcutaneous tissues of the dorsal mid forearm. No additional foreign body is seen. Assessment and Plan - Diagnosis (1) Cellulitis of right forearm Is this a current diagnosis for this admission?: Yes (2) Abscess of right forearm Is this a current diagnosis for this admission?: Yes (3) Bacteremia due to Gram-positive bacteria Is this a current diagnosis for this admission?: Yes Plan: We will repeat blood cultures as only 1 bottle is positive out of 4. We will also obtain an echocardiogram given patient's history of IVDA (4) Intravenous drug abuse, continuous Is this a current diagnosis for this admission?: Yes Plan: Continue to monitor for signs of withdrawal and start patient on methadone to help with his withdrawal symptoms - Plan Summary Summary: His wound culture is currently growing gram-positive cocci in clusters as well as gram-negative rods. Current blood culture is currently negative however patient had blood culture on 21 August which grew Georgina Krusei. He is status post I&D of the right forearm abscess. He is on cefazolin although I do not have the sensitivities back yet. Fairly concerned that he is not on MRSA coverage however since he seems to be relatively stable I will follow the cultures closely and change antibiotics as needed. Patient also noted to have positive blood cultures for Georgina however he has absolutely no clinical symptoms I will suggest to fungemia. Blood cultures done the very next day is currently negative. Patient has not been treated with any antifungal agents. 08/24 Patient appears to be having some withdrawal symptoms. He is sniffling and sneezing. He says he takes a heavy dose of heroine as well as p.o. fentanyl street drugs. Wound cultures currently yielding MRSA as well as Serratia with no anaerobic organisms. Blood cultures yielding gram-positive cocci preliminary result. Antibiotics have been changed to vancomycin as well as ceftriaxone. Leukocytosis is resolved currently with his white count down to 10.5 from a high of 15.6 vital signs are currently stable Repeat blood culture remains negative for fungemia - Time Time Spent with patient: 15-24 minutes Medications reviewed and adjusted accordingly: Yes Anticipated Discharge Disposition: Home, Self Care Anticipated Discharge Timeframe: TBD
[2020-08-24] MEDS: METHADONE HCL 10 MG TABLET PO SCH ×3 (11:37→21:58)
[2020-08-24] MEDS ORDERED: HYDROMORPHONE HCL INJ/PF 2 MG/ML AMPULE IV ONE (12:01)
--- NOTE | 2020-08-24 12:06 | PDOC PROGRESS REPORT ---
Subjective Date:: 08/24/20 Subjective:: Patient seen and examined. No acute events overnight. No worsening symptoms. Does report continued right forearm pain. Reason For Visit: RIGHT ARM CELLULITIS Physical Exam Vital Signs: Temp Pulse Resp BP Pulse Ox 97.3 F 55 L 20 117/68 100 08/24/20 07:37 08/24/20 07:37 08/24/20 07:37 08/24/20 07:37 08/24/20 07:37 Intake & Output 08/23/20 08/24/20 08/25/20 06:59 06:59 06:59 Intake Total 2950 1000 Output Total 1805 500 Balance 1145 500 Weight 80.7 kg 79.9 kg Physical Exam: No acute distress, alert and orient x3 Right upper extremity sensation grossly intact to radial median and ulnar nerve. upper extremity motor function grossly intact to radian median ulnar nerve AIN and PIN Pulses 2+, capillary refill less than 2 seconds No deformity noted full range of motion of the elbow shoulder wrist and fingers without pain Compartments soft, tenderness to palpation is present over the dorsum of the forearm. The dressing was removed as well as the drain. There is some slight semi-purulent sanguinous fluid about the dressing when it was removed. Nothing could be expressed from the wound. No induration or recurrent collection. Proximal and distal aspect of the wound is healing well with the small opening from the drain in the middle. Results Laboratory Results: 08/24/20 04:05 08/24/20 04:05 08/24/20 08/24/20 04:05 04:05 WBC 10.5 RBC 4.37 Hgb 12.5 L Hct 36.6 L MCV 84 MCH 28.6 MCHC 34.2 RDW 13.6 Plt Count 232 Sodium 138.5 Potassium 4.0 Chloride 103 Carbon Dioxide 25 Anion Gap 11 BUN 11 Creatinine 0.56 Est GFR ( Amer) > 60 Glucose 112 H Calcium 8.9 08/22/20 09:50 Arm - Right Gram Stain - Final 08/22/20 09:50 Arm - Right Wound Culture - Final Mrsa (Meth Resis Staph Aureus) Serratia Marcescens 08/22/20 18:00 Forearm - Right Gram Stain - Final 08/22/20 18:00 Forearm - Right Wound Culture - Final Mrsa (Meth Resis Staph Aureus) Serratia Marcescens No Anaerobic Organisms Impressions: Upper Extremity MRI 08/22/20 11:06 IMPRESSION: 1. Diffuse edema overlying the right forearm which may represent cellulitis, but without evidence of abscess. 2. Surgical packing material within the subcutaneous tissues of the dorsal mid forearm. No additional foreign body is seen. Assessment & Plan - Diagnosis (1) Abscess of right forearm Is this a current diagnosis for this admission?: Yes Plan: Drain removed today. We will continue to follow Monitor for any potential drainage, will likely be able to be discharged home if wound remains stable Ordering a baseline ESR and CRP for further monitoring. If there is continued drainage or concern for persistent infection, may need to trend ESR and CRP. Antibiotic recommendations per infectious disease or hospitalist. Cultures growing MRSA as Serratia - Time Time Spent with patient: Less than 15 minutes
[2020-08-24] MEDS: VANCOMYCIN HCL 1,000 MG in DEXTROSE 5%-WATER 250 ML IV SCH ×2 (12:44→17:29)
[2020-08-25] MEDS: VANCOMYCIN HCL 1,000 MG in DEXTROSE 5%-WATER 250 ML IV SCH ×4 (02:27→18:27)
[2020-08-25] MEDS: KETOROLAC TROMETHAMINE INJ/PF 30 MG/1 ML SDV IV SCH ×4 (02:28→21:01)
[2020-08-25] MEDS: METHADONE HCL 10 MG TABLET PO SCH ×4 (05:30→22:04)
[2020-08-25 05:41] LABS: HEMATOCRIT 37.3 % (37.9-51.0); HEMOGLOBIN 12.5 g/dL (13.5-17.0); MEAN CORPUSCULAR HEMOGLOBIN 28.1 pg (27.0-33.4); MEAN CORPUSCULAR HGB CONC 33.4 g/dL (32.0-36.0); MEAN CORPUSCULAR VOLUME 84 fl (80-97); PLATELET COUNT 287 10^3/uL (150-450); RED BLOOD COUNT 4.43 10^6/uL (4.35-5.55); RED CELL DISTRIBUTION WIDTH 13.6 % (11.5-14.0); WHITE BLOOD COUNT 8.6 10^3/uL (4.0-10.5)
[2020-08-25 06:06] LABS: ANION GAP 11 (5-19); BLOOD UREA NITROGEN 14 mg/dL (7-20); CALCIUM 8.9 mg/dL (8.4-10.2); CARBON DIOXIDE 22 mmol/L (22-30); CHLORIDE 105 mmol/L (98-107); GLUCOSE 89 mg/dL (75-110); POTASSIUM 4.7 mmol/L (3.6-5.0)
[2020-08-25] MEDS: OXYCODONE-ACETAMINOPHEN 5-325 MG TABLET PO PRN ×3 (08:20→21:02)
[2020-08-25] MEDS: DOXYCYCLINE HYCLATE 100 MG in DEXTROSE 5%-WATER 250 ML IV SCH (09:12)
[2020-08-25 10:39] LABS: VANCOMYCIN,TROUGH 9.2 ug/mL (5.0-20.0)
[2020-08-25] MEDS: MORPHINE SULFATE 10 MG/ML INJ IV PRN ×2 (11:24→18:27)
--- NOTE | 2020-08-25 12:24 | PDOC PROGRESS REPORT ---
Subjective Date:: 08/25/20 Subjective:: Patient's pain and discomfort has improved although continues to have some resid ual swelling. Denies numbness or tingling. Has been taking pain medication regularly with some relief. Denies fever chills or sweats. Reason For Visit: RIGHT ARM CELLULITIS Physical Exam Vital Signs: Temp Pulse Resp BP Pulse Ox 97.7 F 53 L 18 113/56 L 99 08/25/20 11:23 08/25/20 11:23 08/25/20 11:23 08/25/20 11:23 08/25/20 11:23 Intake & Output 08/24/20 08/25/20 08/26/20 06:59 06:59 06:59 Intake Total 1000 1750 500 Output Total 500 215 Balance 500 1535 500 Weight 79.9 kg 79.9 kg Musculoskeletal exam: PRESENT: other - Right forearm: 1.5 cm open wound centrally with serosanguineous drainage no purulent drainage. Previous erythema and swelling has significantly improved. Compartment soft and compressible no sign of compartment syndrome. Intact IP/MP flexion/extension. No pain with passive stretch. Results Laboratory Results: 08/25/20 04:24 08/25/20 04:24 08/24/20 08/25/20 08/25/20 12:30 04:24 04:24 WBC 8.6 RBC 4.43 Hgb 12.5 L Hct 37.3 L MCV 84 MCH 28.1 MCHC 33.4 RDW 13.6 Plt Count 287 Sodium 138.1 Potassium 4.7 Chloride 105 Carbon Dioxide 22 Anion Gap 11 BUN 14 Creatinine 0.62 Est GFR ( Amer) > 60 Glucose 89 Calcium 8.9 C-Reactive Protein 51.2 H 08/22/20 10:08 Blood Blood Culture - Final Aerococcus Species 08/22/20 09:50 Arm - Right Gram Stain - Final 08/22/20 09:50 Arm - Right Wound Culture - Final Mrsa (Meth Resis Staph Aureus) Serratia Marcescens 08/22/20 18:00 Forearm - Right Gram Stain - Final 08/22/20 18:00 Forearm - Right Wound Culture - Final Mrsa (Meth Resis Staph Aureus) Serratia Marcescens No Anaerobic Organisms Impressions: Upper Extremity MRI 08/22/20 11:06 IMPRESSION: 1. Diffuse edema overlying the right forearm which may represent cellulitis, but without evidence of abscess. 2. Surgical packing material within the subcutaneous tissues of the dorsal mid forearm. No additional foreign body is seen. Assessment & Plan - Diagnosis (1) Abscess of right forearm Is this a current diagnosis for this admission?: Yes Plan: Patient doing well status post irrigation debridement his swelling in preoperative findings have notably improved. His postoperative MRI demonstrated no evidence of deep abscess. At this point he will continue daily dressing changes. We will transition to p.o. antibiotics tomorrow and may follow-up with me as an outpatient in 2 weeks. Patient is cleared for discharge from orthopedic standpoint 08/26/2020. - Time Time Spent with patient: Less than 15 minutes
--- NOTE | 2020-08-25 15:31 | PDOC PROGRESS REPORT ---
Subjective Date:: 08/25/20 Subjective:: He is a heavy IV drug abuse as well as oral fentanyl abuser. He appears to be d oing better today. He is requesting to have his methadone dose increased which I have done temporarily. I hope to discharge him in another day or 2 pending his repeat blood culture result. Although this is a possible contaminant I think it is reasonable given his history to make sure that he does not have a secondary infection Reason For Visit: RIGHT ARM CELLULITIS Physical Exam Vital Signs: Temp Pulse Resp BP Pulse Ox 97.7 F 53 L 18 113/56 L 99 08/25/20 11:23 08/25/20 11:23 08/25/20 11:23 08/25/20 11:23 08/25/20 11:23 Intake & Output 08/24/20 08/25/20 08/26/20 06:59 06:59 06:59 Intake Total 1000 1750 500 Output Total 500 215 Balance 500 1535 500 Weight 79.9 kg 79.9 kg General appearance: PRESENT: no acute distress, well-developed, well-nourished Head exam: PRESENT: atraumatic, normocephalic Eye exam: PRESENT: conjunctiva pink, EOMI, PERRLA. ABSENT: scleral icterus Ear exam: PRESENT: normal external ear exam Mouth exam: PRESENT: moist, tongue midline Neck exam: ABSENT: carotid bruit, JVD, lymphadenopathy, thyromegaly Respiratory exam: PRESENT: clear to auscultation sean. ABSENT: rales, rhonchi, wheezes Cardiovascular exam: PRESENT: RRR, +S1, +S2. ABSENT: diastolic murmur, rubs, systolic murmur Pulses: PRESENT: normal dorsalis pedis pul Vascular exam: PRESENT: normal capillary refill GI/Abdominal exam: PRESENT: normal bowel sounds, soft. ABSENT: distended, guar ding, mass, organolmegaly, rebound, tenderness Rectal exam: PRESENT: deferred Extremities exam: PRESENT: full ROM, other - RUE swelling improved. ABSENT: calf tenderness, clubbing, pedal edema Neurological exam: PRESENT: alert, awake, oriented to person, oriented to place, oriented to time, oriented to situation, CN II-XII grossly intact. ABSENT: motor sensory deficit Psychiatric exam: PRESENT: appropriate affect, normal mood. ABSENT: homicidal ideation, suicidal ideation Skin exam: PRESENT: dry, intact, warm. ABSENT: cyanosis, rash Results Laboratory Results: 08/25/20 04:24 08/25/20 04:24 08/25/20 08/25/20 04:24 04:24 WBC 8.6 RBC 4.43 Hgb 12.5 L Hct 37.3 L MCV 84 MCH 28.1 MCHC 33.4 RDW 13.6 Plt Count 287 Sodium 138.1 Potassium 4.7 Chloride 105 Carbon Dioxide 22 Anion Gap 11 BUN 14 Creatinine 0.62 Est GFR ( Amer) > 60 Glucose 89 Calcium 8.9 08/22/20 10:08 Blood Blood Culture - Final Aerococcus Species 08/22/20 09:50 Arm - Right Gram Stain - Final 08/22/20 09:50 Arm - Right Wound Culture - Final Mrsa (Meth Resis Staph Aureus) Serratia Marcescens 08/22/20 18:00 Forearm - Right Gram Stain - Final 08/22/20 18:00 Forearm - Right Wound Culture - Final Mrsa (Meth Resis Staph Aureus) Serratia Marcescens No Anaerobic Organisms Impressions: Upper Extremity MRI 08/22/20 11:06 IMPRESSION: 1. Diffuse edema overlying the right forearm which may represent cellulitis, but without evidence of abscess. 2. Surgical packing material within the subcutaneous tissues of the dorsal mid forearm. No additional foreign body is seen. Assessment and Plan - Diagnosis (1) Cellulitis of right forearm Is this a current diagnosis for this admission?: Yes (2) Abscess of right forearm Is this a current diagnosis for this admission?: Yes (3) Bacteremia due to Gram-positive bacteria Is this a current diagnosis for this admission?: Yes (4) Intravenous drug abuse, continuous Is this a current diagnosis for this admission?: Yes - Plan Summary Summary: His wound culture is currently growing gram-positive cocci in clusters as well as gram-negative rods. Current blood culture is currently negative however patient had blood culture on 21 August which grew Georgina Krusei. He is status post I&D of the right forearm abscess. He is on cefazolin although I do not have the sensitivities back yet. Fairly concerned that he is not on MRSA coverage however since he seems to be relatively stable I will follow the cultures closely and change antibiotics as needed. Patient also noted to have positive blood cultures for Georgina however he has absolutely no clinical symptoms I will suggest to fungemia. Blood cultures done the very next day is c urrently negative. Patient has not been treated with any antifungal agents. 08/24 Patient appears to be having some withdrawal symptoms. He is sniffling and sneezing. He says he takes a heavy dose of heroine as well as p.o. fentanyl street drugs. Wound cultures currently yielding MRSA as well as Serratia with no anaerobic organisms. Blood cultures yielding gram-positive cocci preliminary result. Antibiotics have been changed to vancomycin as well as ceftriaxone. Leukocytosis is resolved currently with his white count down to 10.5 from a high of 15.6 vital signs are currently stable Repeat blood culture remains negative for fungemia 08/[address] Escobar. He suggest that patient can be discharged home for outpatient follow-up in about 2 weeks. He also suggested as an inne tient home with 2-week course of antibiotics. At this time I will repeat his blood culture and reassess in a.m. - Time Time Spent with patient: 15-24 minutes Anticipated Discharge Disposition: Home, Self Care Anticipated Discharge Timeframe: within 48 hours
[2020-08-26] MEDS: KETOROLAC TROMETHAMINE INJ/PF 30 MG/1 ML SDV IV SCH ×4 (02:19→21:11)
[2020-08-26] MEDS: VANCOMYCIN HCL 1,000 MG in DEXTROSE 5%-WATER 250 ML IV SCH ×3 (02:21→17:06)
--- NOTE | 2020-08-26 04:06 | Progress Note ---
Provider Note Provider Note: [facility] ID Telephone Advice Consultation Chart reviewed, patient not seen. This is a 40-year-old man that was admitted after suffering a stingray injury. He developed redness, swelling, drainage and pain. He was evaluated in the ED and found with right forearm cellulitis and small abscess. He had a bedside I&D. He had leukocytosis. Symptoms did not improve for which patient was evaluated by orthopedics who recommended MRI of the right arm. MRI showed right forearm soft tissue swelling but no organized fluid collections. He was taken to the OR for I&D. There was no fluid tracking to the fascia or the bone. Tissue cultures positive for MRSA and Serratia marcescens. Blood culture with 1/4 bottles with Aerococcus spp. Patient has been on vancomycin and doxycycline. He has been afebrile, HD stable, leukocytosis resolved. ESR 31 and CRP 51. ID consulted for recommendations. Allergies: No Known Allergies Allergy (Verified 08/21/20 12:06) Medications: No Home Medications 08/22/20 Vital Signs: Temp Pulse Resp BP Pulse Ox 97.6 F 48 L 16 103/60 98 08/26/20 00:05 08/26/20 00:05 08/26/20 00:05 08/26/20 00:05 08/26/20 00:05 Intake & Output 08/24/20 08/25/20 08/26/20 06:59 06:59 06:59 Intake Total 1000 1750 1760 Output Total 500 215 Balance 500 1535 1760 Weight 79.9 kg 79.9 kg Weight/Height Weight 79.9 kg Height 6 ft 6 in Laboratories: 08/25/20 04:24 08/25/20 09:45 MCV 84 fl (80-97) 08/25/20 04:24 MCH 28.1 pg (27.0-33.4) 08/25/20 04:24 MCHC 33.4 g/dL (32.0-36.0) 08/25/20 04:24 RDW 13.6 % (11.5-14.0) 08/25/20 04:24 Seg Neutrophils % 82.8 % (42-78) H 08/22/20 10:08 Chloride 105 mmol/L (98-107) 08/25/20 04:24 Carbon Dioxide 22 mmol/L (22-30) 08/25/20 04:24 Anion Gap 11 (5-19) 08/25/20 04:24 Est GFR ( Amer) > 60 (>60) 08/25/20 09:45 Glucose 89 mg/dL (75-110) 08/25/20 04:24 Lactic Acid 1.6 mmol/L (0.7-2.1) 08/22/20 10:08 Calcium 8.9 mg/dL (8.4-10.2) 08/25/20 04:24 Total Bilirubin 0.6 mg/dL (0.2-1.3) 08/22/20 10:08 AST 45 U/L (17-59) 08/22/20 10:08 Alkaline Phosphatase 72 U/L (38-126) 08/22/20 10:08 C-Reactive Protein 51.2 mg/L (<10.0) H 08/24/20 12:30 Total Protein 6.1 g/dL (6.3-8.2) L 08/22/20 10:08 Albumin 3.2 g/dL (3.5-5.0) L 08/22/20 10:08 Microbiology: Blood cultures 08/22 Aerococcus spp 1/4 Tissue cultures 08/22 MRSA, Serratia marcescens Radiology: Upper Extremity MRI 08/22/20 11:06 IMPRESSION: 1. Diffuse edema overlying the right forearm which may represent cellulitis, but without evidence of abscess. 2. Surgical packing material within the subcutaneous tissues of the dorsal mid forearm. No additional foreign body is seen. Assessment and Recommendations: Patient evaluated for right forearm stingray injury with development of purulent cellulitis/abscess. He is s/p incision and drainage x 2. Tissue cultures for MRSA and Serratia maercescens. Blood culture positive for Aerococcus spp, not isolated from the wound raising concerns for contamination vs true pathogen. Considering that this organisms can cause severe infections, it is reasonable to treat it. As it was low grade bacteremia and no stigmata of endocarditis, will not recommend TTE at this time. The best regimen for this infection would be linezolid 600 mg po bid + ciprofloxacin 750 mg po every 12 hr for 10 days. Bactrim DS bid + ciprofloxacin 750 mg po every 12 hr may be an alternative with the same duration of therapy. Please call back if any questions. Prudence Mendoza MD [facility] ID [phone]
[2020-08-26] MEDS: METHADONE HCL 10 MG TABLET PO SCH ×3 (05:28→21:11)
[2020-08-26] MEDS: OXYCODONE-ACETAMINOPHEN 5-325 MG TABLET PO PRN ×2 (08:18→15:00)
[2020-08-26] MEDS: MORPHINE SULFATE 10 MG/ML INJ IV PRN (13:51)
--- NOTE | 2020-08-26 14:52 | PDOC PROGRESS REPORT ---
Subjective Date:: 08/26/20 Subjective:: He is a heavy IV drug abuse as well as oral fentanyl abuser. He appears to be d oing better today. He is requesting to have his methadone dose increased which I have done temporarily. I hope to discharge him in another day or 2 pending his repeat blood culture result. Although this is a possible contaminant I think it is reasonable given his history to make sure that he does not have a secondary infection Reason For Visit: RIGHT ARM CELLULITIS Physical Exam Vital Signs: Temp Pulse Resp BP Pulse Ox 97.8 F 62 18 122/58 L 100 08/26/20 08:27 08/26/20 13:03 08/26/20 13:03 08/26/20 13:03 08/26/20 13:03 Intake & Output 08/25/20 08/26/20 08/27/20 06:59 06:59 06:59 Intake Total 1750 2110 1336 Output Total 215 Balance 1535 2110 1336 Weight 79.9 kg 81.8 kg General appearance: PRESENT: no acute distress, well-developed, well-nourished Head exam: PRESENT: atraumatic, normocephalic Eye exam: PRESENT: conjunctiva pink, EOMI, PERRLA. ABSENT: scleral icterus Ear exam: PRESENT: normal external ear exam Mouth exam: PRESENT: moist, tongue midline Neck exam: ABSENT: carotid bruit, JVD, lymphadenopathy, thyromegaly Respiratory exam: PRESENT: clear to auscultation sean. ABSENT: rales, rhonchi, wheezes Cardiovascular exam: PRESENT: RRR. ABSENT: diastolic murmur, rubs, systolic murmur Pulses: PRESENT: normal dorsalis pedis pul Vascular exam: PRESENT: normal capillary refill GI/Abdominal exam: PRESENT: normal bowel sounds, soft. ABSENT: distended, guarding, mass, organolmegaly, rebound, tenderness Rectal exam: PRESENT: deferred Extremities exam: PRESENT: full ROM, other - RUE in dressing. ABSENT: calf tenderness, clubbing, pedal edema, tenderness Neurological exam: PRESENT: alert, awake, oriented to person, oriented to place, oriented to time, oriented to situation, CN II-XII grossly intact. ABSENT: motor sensory deficit Psychiatric exam: PRESENT: appropriate affect, normal mood. ABSENT: homicidal ideation, suicidal ideation Skin exam: PRESENT: dry, intact, warm. ABSENT: cyanosis, rash Results Laboratory Results: 08/25/20 04:24 08/25/20 09:45 08/25/20 09:45 Creatinine 0.53 Est GFR ( Amer) > 60 Impressions: Upper Extremity MRI 08/22/20 11:06 IMPRESSION: 1. Diffuse edema overlying the right forearm which may represent cellulitis, but without evidence of abscess. 2. Surgical packing material within the subcutaneous tissues of the dorsal mid forearm. No additional foreign body is seen. Assessment and Plan - Diagnosis (1) Cellulitis of right forearm Is this a current diagnosis for this admission?: Yes (2) Abscess of right forearm Is this a current diagnosis for this admission?: Yes (3) Bacteremia due to Gram-positive bacteria Is this a current diagnosis for this admission?: Yes (4) Intravenous drug abuse, continuous Is this a current diagnosis for this admission?: Yes - Plan Summary Summary: His wound culture is currently growing gram-positive cocci in clusters as well as gram-negative rods. Current blood culture is currently negative however patient had blood culture on 21 August which grew Georgina Krusei. He is status post I&D of the right forearm abscess. He is on cefazolin although I do not have the sensitivities back yet. Fairly concerned that he is not on MRSA coverage however since he seems to be relatively stable I will follow the cultures closely and change antibiotics as needed. Patient also noted to have positive blood cultures for Georgina however he has absolutely no clinical symptoms I will suggest to fungemia. Blood cultures done the very next day is currently negative. Patient has not been treated with any antifungal agents. 08/24 Patient appears to be having some withdrawal symptoms. He is sniffling and sneezing. He says he takes a heavy dose of heroine as well as p.o. fentanyl street drugs. Wound cultures currently yielding MRSA as well as Serratia with no anaerobic organisms. Blood cultures yielding gram-positive cocci preliminary result. Antibiotics have been changed to vancomycin as well as ceftriaxone. Leukocytosis is resolved currently with his white count down to 10.5 from a high of 15.6 vital signs are currently stable Repeat blood culture remains negative for fungemia 08/[address] Escobar. He suggest that patient can be discharged home for outpatient follow-up in about 2 weeks. He also suggested as an inpatient home with 2-week course of antibiotics. At this time I will repeat his blood culture and reassess in a.m. 08/26 Infectious disease assessment and Recommendations: Patient evaluated for right forearm stingray injury with development of purulent cellulitis/abscess. He is s/p incision and drainage x 2. Tissue cultures for MRSA and Serratia maercescens. Blood culture positive for Aerococcus spp, not isolated from the wound raising concerns for contamination vs true pathogen. Considering that this organisms can cause severe infections, it is reasonable to treat it. As it was low grade bacteremia and no stigmata of endocarditis, will not recommend TTE at this time. The best regimen for this infection would be linezolid 600 mg po bid + ciprofloxacin 750 mg po every 12 hr for 10 days. Bactrim DS bid + ciprofloxacin 750 mg po every 12 hr may be an alternative with the same duration of therapy. Please call back if any questions. Patient apparently had a stingray infection however it does have a history of IV drug abuse. He has already been seen by surgery. Your ED had an echocardiogram done the results of which is pending. Blood culture result is also pending. I will keep the patient overnight and if he remains stable and blood culture returns negative tomorrow which would make it 48 hours he will be discharged home as per infectious disease recommendation. We will start him on Bactrim twice daily as well as ciprofloxacin 750 mg every 12 hours for duration of 10 days as per above - Time Time Spent with patient: 15-24 minutes Medications reviewed and adjusted accordingly: Yes Anticipated Discharge Disposition: Home, Self Care Anticipated Discharge Timeframe: within 24 hours
--- NOTE | 2020-08-26 15:31 | XCELERA REPORT ---
[address] [address] Transthoracic Echocardiogram Report Name: JOSE THOMAS Age: 40 yrs Gender: Male : 1980 Patient Status: Inpatient Patient Location: [address] [place], [place] [address] Study Date: 08/24/2020 02:04 PM Height: 78 in Weight: 176 lb BSA: 2.1 m2 Procedure: A complete two-dimensional transthoracic echocardiogram was performed (2D, M-mode, spectral and color flow Doppler). The study was technically adequate with some images being suboptimal in quality. Reason For Study: IVDA, Bacteremia Ordering Physician: TARYN WOLF Performed By: Meaghan Hightower Interpretation Summary Interpretation Summary TRANS THORACIC ECHOCARDIOGRAM FINDINGS: Technically fair to difficult study. LEFT VENTRICLE: LV Systolic function: LVEF is felt to be within normal limits. Best estimate is approximately LVEF is 60 %. LV Diastolic Function: Not adequate assessed. Wall motion : No definite regional wall motion abnormalities are noted, however not all wall segment were well visualized. Left ventricular chamber size : is within normal limit. Left ventricular wall thickness : WNL. INTERVENTRICULAR SEPTUM: no evidence of VSD noted. No asymmetric hypertrophy noted. RIGHT VENTRICLE: RV systolic function : is felt to be within normal limit. Right Ventricle Size : borderline dilated. LEFT ATRIUM size : Borderline dilated. RIGHT ATRIUM size : is within normal limit. INTER ATRIAL SEPTUM : No definite atrial septal defect noted however a small PFO could be missed. AORTIC ROOT : seems to be within normal limits. Ascending aorta is not well visualized. INFERIOR VENA CAVA: WNL with normal phasic respiratory variation. VALVES: MITRAL VALVE : Leaflets are mildly thickened. Mobility seems to be within normal limits. Mitral Regurgitation : Trace mitral regurgitation is noted. Mitral Stenosis: No mitral stenosis noted. Mitral valve prolapse : none noted. AORTIC VALVE: seems to be trileaflet with thickening but adequate excursion. Aortic stenosis : No aortic stenosis noted. Aortic regurgitation : No aortic incompetence noted. TRICUSPID VALVE : mobility and structures within normal limit. Tricuspid stenosis : no tricuspid stenosis noted. Tricuspid regurgitation : Trace tricuspid regurgitation noted. Estimated RVSP : tricuspid jet envelope not well defined to measure RV systolic pressure accurately. PULMONARY VALVE : was not well visualized but no significant abnormalities suspected. Pulmonary stenosis : no significant pulmonary stenosis noted. Pulmonary regurgitation : no significant pulmonary regurgitation noted. MASSES AND THROMBUS : No definite intracardiac thrombus or masses are noted. PERICARDIUM: Minimal pericardial effusion was noted. IMPRESSION : 1. Normal LVEF. 2. Normal LV wall thickness noted. 3. Diastolic function not adequately assessed. 4. No significant valvular stenosis or regurgitation noted. 5. No definite vegetations noted but if clinical suspicion is high obtain,multiple blood culture and consider MASOOD. MMode/2D Measurements & Calculations RVDd: 2.7 cm LVIDd: 5.6 cm FS: 35.1 % Ao root diam: IVSd: 1.0 cm LVIDs: 3.6 cm EDV(Teich): 3.1 cm 154.9 ml Ao root area: LVPWd: 0.83 cm ESV(Teich): 7.7 cm2 56.2 ml EF(Teich): 63.7 % EDV(MOD-sp4): SV(MOD-sp4): 124.6 ml 80.2 ml ESV(MOD-sp4): 44.5 ml EF(MOD-sp4): 64.3 % Doppler Measurements & Calculations MV E max dmitry: MV dec slope: Ao V2 max: LV V1 max P.1 cm/sec 129.8 cm/sec 6.2 mmHg MV A max dmitry: 374.7 cm/sec2 Ao max P.7 mmHgLV V1 max: 57.9 cm/sec MV dec time: 0.19 sec 124.1 cm/sec MV E/A: 1.2 PA V2 max: PI end-d dmitry: TR max dmitry: 82.0 cm/sec 90.9 cm/sec 238.7 cm/sec PA max P.7 mmHg TR max P.8 mmHg Left Ventricle The left ventricle is grossly normal size. The left ventricular ejection fraction is normal. Doppler measurements suggest normal left ventricular diastolic function. The left ventricular wall motion is normal. Right Ventricle The right ventricle is grossly normal size. There is normal right ventricular wall thickness. The right ventricular systolic function is normal. Atria The right atrium is normal in size. The left atrial size is normal. The interatrial septum is difficult to see, but appears to be grossly normal. Mitral Valve The mitral valve is grossly normal. There is no mitral valve stenosis. There is a trace amount of mitral regurgitation. Aortic Valve The aortic valve is grossly normal. There is no aortic valve stenosis. No aortic regurgitation is present. Tricuspid Valve The tricuspid valve is not well visualized, but is grossly normal. There is no tricuspid stenosis. There is a trace or physiologic amount of tricuspid regurgitation. Pulmonic Valve The pulmonic valve is not well seen, but is grossly normal. There is no pulmonic valvular stenosis. There is a trace or physiologic amount of pulmonic regurgitation. Great Vessels The aortic root is normal size. The inferior vena cava appeared normal. Effusions There is no pericardial effusion. Incidental Findings No definite vegetations noted but if clinical suspicion is high, then consider MASOOD and multiple blood cultures. : TARYN WOLF Shyamal
--- NOTE | 2020-08-26 18:45 | PDOC H&P ---
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 He said he feels like and about an inch and a half and came right back out. He rested out and put a bandage over it and kept looking. The swelling kept getting worse eventually his convinced him to come to the hospital to get it checked out. He had evidence of obvious cellulitis over his entire right forearm he was seen in consultation by orthopedics for possible debridement. Past Medical History Psychiatric Medical History: Denies: Depression Social History Smoking Status: Never Smoker Electronic Cigarette use?: No Frequency of Alcohol Use: None Hx Recreational Drug Use: No Hx Prescription Drug Abuse: No - Advance Directive Resuscitation Status: Full Code Family History Family History: Reviewed & Not Pertinent Parental Family History Reviewed: Yes Children Family History Reviewed: Yes Sibling(s) Family History Reviewed.: Yes Medication/Allergy Home Medications: No Home Medications 08/22/20 Allergies/Adverse Reactions: No Known Allergies Allergy (Verified 08/21/20 12:06) Review of Systems All systems: reviewed and no additional remarkable complaints except as stated - All systems were reviewed and were negative except as noted in the HPI Physical Exam Vital Signs: Temp Pulse Resp BP Pulse Ox 97.8 F 56 L 15 124/70 99 08/26/20 08:27 08/26/20 16:33 08/26/20 16:33 08/26/20 16:33 08/26/20 16:33 Intake & Output 08/25/20 08/26/20 08/27/20 06:59 06:59 06:59 Intake Total 1750 2110 1586 Output Total 215 Balance 1535 2110 1586 Weight 79.9 kg 81.8 kg General appearance: PRESENT: no acute distress, cooperative Head exam: PRESENT: atraumatic, normocephalic Eye exam: PRESENT: EOMI, PERRLA. ABSENT: conjunctival injection, nystagmus, scleral icterus Ear exam: PRESENT: normal external ear exam Mouth exam: PRESENT: moist, neck supple Throat exam: ABSENT: post pharyngeal erythema Neck exam: PRESENT: full ROM. ABSENT: carotid bruit, JVD, lymphadenopathy, meningismus, tenderness, thyromegaly Respiratory exam: PRESENT: clear to auscultation sean, symmetrical, unlabored. ABSENT: accessory muscle use, chest wall tenderness, crackles, prolonged expiratory phas, rhonchi, tachypnea, wheezes Cardiovascular exam: PRESENT: RRR, +S1, +S2 Pulses: PRESENT: normal carotid pulses Vascular exam: PRESENT: normal capillary refill GI/Abdominal exam: PRESENT: normal bowel sounds, soft. ABSENT: distended, guarding, rebound, tenderness Extremities exam: PRESENT: other - There is a puncture wound on the dorsal lateral aspect of the right forearm about 8 cm distal to the elbow. There is obvious swelling around the wound with serosanguineous fluid oozing from it. Erythema and swelling from proximal to the elbow down to his hand.. ABSENT: clubbing, pedal edema Neurological exam: PRESENT: alert, awake, oriented to person, oriented to place, oriented to time, oriented to situation, CN II-XII grossly intact. ABSENT: motor sensory deficit Psychiatric exam: PRESENT: appropriate affect, normal mood Skin exam: PRESENT: dry, warm, other - Right upper extremity as previously noted Results Laboratory Results: 08/25/20 04:24 08/25/20 09:45 08/25/20 09:45 Creatinine 0.53 Est GFR ( Amer) > 60 Impressions: Upper Extremity MRI 08/22/20 11:06 IMPRESSION: 1. Diffuse edema overlying the right forearm which may represent cellulitis, but without evidence of abscess. 2. Surgical packing material within the subcutaneous tissues of the dorsal mid forearm. No additional foreign body is seen. Assessment and Plan - Diagnosis (1) Cellulitis of right forearm Is this a current diagnosis for this admission?: Yes (2) Swelling of right upper extremity Is this a current diagnosis for this admission?: Yes - Plan Summary Summary: He is being seen by orthopedics. An MRI will be done to determine whether or not he has evidence of deep abscess. We will start him empirically on Keflex and doxycycline to cover for typical skin organisms as well as to cover him for organisms to which he could have become exposed due to the salt water environment. We will follow-up blood cultures and orthopedics recommendations. - Time Time Spent with patient: 35 or more minutes Anticipated Discharge Disposition: Home, Self Care Anticipated Discharge Timeframe: Undetermin - Inpatient Certification Based on my medical assessment, after consideration of the patient's comorbidities, presenting symptoms, or acuity I expect that the services needed warrant INPATIENT care.: Yes I certify that my determination is in accordance with my understanding of Medicare's requirements for reasonable and necessary INPATIENT services [42 CFR 412.3e].: Yes Medical Necessity: Need Close Monitoring Due to Risk of Patient Decompensation, Need For IV Fluids, Need For Continuous Telemetry Monitoring, Need for Pain Control, Need for IV Antibiotics, Need for Surgery, Risk of Complication if Not Cared For in Hospital
[2020-08-26] MEDS: SULFAMETHOXAZOLE/TRIMETHOPRIM 800-160 MG TABLET PO SCH (21:11)
[2020-08-26] MEDS ORDERED: CIPROFLOXACIN HCL 750 MG TABLET ONE (21:22)
[2020-08-26] MEDS: CIPROFLOXACIN HCL 750 MG TABLET PO SCH (21:41)
[2020-08-27] MEDS: KETOROLAC TROMETHAMINE INJ/PF 30 MG/1 ML SDV IV SCH ×2 (02:04→08:28)
[2020-08-27] MEDS: METHADONE HCL 10 MG TABLET PO SCH (06:44)
[2020-08-27] MEDS: CIPROFLOXACIN HCL 750 MG TABLET PO SCH (09:16)
[2020-08-27] MEDS: SULFAMETHOXAZOLE/TRIMETHOPRIM 800-160 MG TABLET PO SCH (09:16)
[2020-08-27 12:36] VITALS: BP 111/61
[2020-08-27] MEDS ORDERED: METHADONE HCL 10 MG TABLET PO SCH (14:00)
--- NOTE | 2020-08-27 16:14 | PDOC DISCHARGE SUMMARY ---
Impression - Admit/DC Date/PCP Admission Date/Primary Care Provider: 08/22/20 12:04 Discharge Date: 08/27/20 - Discharge Diagnosis (1) Cellulitis of right forearm Is this a current diagnosis for this admission?: Yes (2) Abscess of right forearm Is this a current diagnosis for this admission?: Yes (3) Bacteremia due to Gram-positive bacteria Is this a current diagnosis for this admission?: Yes (4) Intravenous drug abuse, continuous Is this a current diagnosis for this admission?: Yes - Assessment Summary: He is being seen by orthopedics. An MRI will be done to determine whether or not he has evidence of deep abscess. We will start him empirically on Keflex and doxycycline to cover for typical skin organisms as well as to cover him for organisms to which he could have become exposed due to the salt water environment. We will follow-up blood cultures and orthopedics recommendations. - Additional Information Resuscitation Status: Full Code Discharge Diet: As Tolerated Discharge Activity: Activity As Tolerated Referrals: BILLIE GRIFFIN DO [ACTIVE STAFF] - () Prescriptions: Ketorolac Tromethamine [Toradol 10 mg Tablet] 10 mg PO Q6HP PRN #20 tablet PRN Reason: For Pain Scale 2-4 Ciprofloxacin HCl [Cipro 750 mg Tablet] 750 mg PO Q12 #20 tablet Sulfamethoxazole/Trimethoprim [Septra-Ds 800-160 mg Tablet] 1 tab PO BID #20 tablet Home Medications: Ciprofloxacin HCl [Cipro 750 mg Tablet] 750 mg PO Q12 #20 tablet 08/27/20 Ketorolac Tromethamine [Toradol 10 mg Tablet] 10 mg PO Q6HP PRN #20 tablet 08/27/20 Sulfamethoxazole/Trimethoprim [Septra-Ds 800-160 mg Tablet] 1 tab PO BID #20 tablet 08/27/20 History of Present Illiness History of Present Illness: OJSE THOMAS is a 40 year old male This patient was admitted apparently after having sustained a stingray puncture wound. He presented to the hospital with cellulitis of his right upper extremity. Because of the extent of his cellulitis was admitted for further management. Hospital Course Hospital Course: She was admitted for further management. He was seen by orthopedic service and he had debridement done due to the extent of his wounds. Cultures obtained From the wound grew MRSA, and Serratia and blood culture yielded Aerococcus. Patient also had blood culture done the day prior to admission which yielded Georgina krusei. Patient had no evidence of fungemia clinically and there was also a thought that his bacteremia may have been a contaminant however patient does have a history of IVDA and so repeat blood cultures were done on August 25 which so far after 48 hours have been negative. Echocardiogram was also done due to patient's history of IVDA with no evidence of vegetations on TTE. He received oral methadone in hospital as he was beginning to undergo withdrawal symptoms and this seemed to control him pretty well. He was advised on the need to abstain from further drug abuse and he says he is already got counseling and treatment set up as outpatient. Patient was treated with IV antibiotics while in hospital. An infectious disease consult was done and suggestion for oral antibiotics, ciprofloxacin as well as Bactrim was made so patient was changed over to these oral antibiotics and is being discharged home on the same. He is to follow-up with orthopedics in about 10 days. He remained afebrile throughout his hospital stay and at this time with no further interventions been planned with clean wounds he is being discharged home for outpatient follow-up. Physical Exam Vital Signs: Temp Pulse Resp BP Pulse Ox 97.8 F 56 L 17 111/61 100 08/27/20 12:34 08/27/20 12:34 08/27/20 12:34 08/27/20 12:34 08/27/20 12:34 Intake & Output 08/26/20 08/27/20 08/28/20 06:59 06:59 06:59 Intake Total 2110 2436 360 Output Total 100 Balance 2110 2336 360 Weight 81.8 kg 83.2 kg General appearance: PRESENT: no acute distress, well-developed, well-nourished Head exam: PRESENT: atraumatic, normocephalic Eye exam: PRESENT: conjunctiva pink, EOMI, PERRLA. ABSENT: scleral icterus Mouth exam: PRESENT: moist, tongue midline Neck exam: ABSENT: carotid bruit, JVD, lymphadenopathy, thyromegaly Respiratory exam: PRESENT: clear to auscultation sean. ABSENT: rales, rhonchi, wheezes Cardiovascular exam: PRESENT: RRR. ABSENT: diastolic murmur, rubs, systolic murmur Pulses: PRESENT: normal dorsalis pedis pul Vascular exam: PRESENT: normal capillary refill GI/Abdominal exam: PRESENT: normal bowel sounds, soft. ABSENT: distended, guarding, mass, organolmegaly, rebound, tenderness Rectal exam: PRESENT: deferred Extremities exam: PRESENT: full ROM, other - RUE erythema and swelling improved, fingers mobile. ABSENT: calf tenderness, clubbing, pedal edema Musculoskeletal exam: PRESENT: ambulatory Neurological exam: PRESENT: alert, awake, oriented to person, oriented to place, oriented to time, oriented to situation, CN II-XII grossly intact. ABSENT: motor sensory deficit Psychiatric exam: PRESENT: appropriate affect, normal mood. ABSENT: homicidal ideation, suicidal ideation Skin exam: PRESENT: dry, intact, warm. ABSENT: cyanosis, rash Results Laboratory Results: WBC 8.6 10^3/uL (4.0-10.5) 08/25/20 04:24 RBC 4.43 10^6/uL (4.35-5.55) 08/25/20 04:24 Hgb 12.5 g/dL (13.5-17.0) L 08/25/20 04:24 Hct 37.3 % (37.9-51.0) L 08/25/20 04:24 MCV 84 fl (80-97) 08/25/20 04:24 MCH 28.1 pg (27.0-33.4) 08/25/20 04:24 MCHC 33.4 g/dL (32.0-36.0) 08/25/20 04:24 RDW 13.6 % (11.5-14.0) 08/25/20 04:24 Plt Count 287 10^3/uL (150-450) 08/25/20 04:24 Lymph % (Auto) 6.7 % (13-45) L 08/22/20 10:08 Pickett % (Auto) 10.0 % (3-13) 08/22/20 10:08 Eos % (Auto) 0.1 % (0-6) 08/22/20 10:08 Baso % (Auto) 0.4 % (0-2) 08/22/20 10:08 Absolute Neuts (auto) 10.3 10^3/uL (1.7-8.2) H 08/22/20 10:08 Absolute Lymphs (auto) 0.8 10^3/uL (0.5-4.7) 08/22/20 10:08 Absolute Monos (auto) 1.2 10^3/uL (0.1-1.4) 08/22/20 10:08 Absolute Eos (auto) 0.0 10^3/uL (0.0-0.6) 08/22/20 10:08 Absolute Basos (auto) 0.0 10^3/uL (0.0-0.2) 08/22/20 10:08 Seg Neutrophils % 82.8 % (42-78) H 08/22/20 10:08 ESR 31 mm/hr (0-15) H 08/24/20 12:30 PT 15.3 SEC (11.4-15.4) 08/22/20 10:08 INR 1.19 08/22/20 10:08 Sodium 138.1 mmol/L (137-145) 08/25/20 04:24 Potassium 4.7 mmol/L (3.6-5.0) 08/25/20 04:24 Chloride 105 mmol/L (98-107) 08/25/20 04:24 Carbon Dioxide 22 mmol/L (22-30) 08/25/20 04:24 Anion Gap 11 (5-19) 08/25/20 04:24 BUN 14 mg/dL (7-20) 08/25/20 04:24 Creatinine 0.53 mg/dL (0.52-1.25) 08/25/20 09:45 Est GFR ( Amer) > 60 (>60) 08/25/20 09:45 Est GFR (MDRD) Non-Af > 60 (>60) 08/25/20 09:45 Glucose 89 mg/dL (75-110) 08/25/20 04:24 Lactic Acid 1.6 mmol/L (0.7-2.1) 08/22/20 10:08 Calcium 8.9 mg/dL (8.4-10.2) 08/25/20 04:24 Total Bilirubin 0.6 mg/dL (0.2-1.3) 08/22/20 10:08 Direct Bilirubin 0.2 mg/dL (0.0-0.4) 08/22/20 10:08 Neonat Total Bilirubin Not Reportable 08/22/20 10:08 Neonat Direct Bilirubin Not Reportable 08/22/20 10:08 Neonat Indirect Bili Not Reportable 08/22/20 10:08 AST 45 U/L (17-59) 08/22/20 10:08 ALT 78 U/L (<50) H 08/22/20 10:08 Alkaline Phosphatase 72 U/L (38-126) 08/22/20 10:08 C-Reactive Protein 51.2 mg/L (<10.0) H 08/24/20 12:30 Total Protein 6.1 g/dL (6.3-8.2) L 08/22/20 10:08 Albumin 3.2 g/dL (3.5-5.0) L 08/22/20 10:08 Time Trough Drawn 0945 08/25/20 09:45 Vancomycin Trough 9.2 ug/mL (5.0-20.0) 08/25/20 09:45 SARS-CoV-2 (PCR) NEGATIVE (NEGATIVE) 08/22/20 14:55 Impressions: Upper Extremity MRI 08/22/20 11:06 IMPRESSION: 1. Diffuse edema overlying the right forearm which may represent cellulitis, but without evidence of abscess. 2. Surgical packing material within the subcutaneous tissues of the dorsal mid forearm. No additional foreign body is seen. Plan Health Concerns: She needs to follow-up for management of his drug abuse Time Spent: Greater than 30 Minutes Stroke Is this a Stroke Patient?: No Acute Heart Failure Is this a Heart Failure Patient?: No
== END 2020-08-27 13:09 | disposition home or self-care (01) | DRG 580 ==
LOC: ER 08:55 → EH 12:04 → 4N 21:48
PROVIDERS: ADMIT Family Medicine; ATTEND Internal Medicine
PROC: 0J9G0ZZ Drainage of Right Lower Arm Subcutaneous Tissue and Fascia, Open Approach (ICD-10-PCS; principal; 2020-08-22 20:00)
DX: L03.113 Cellulitis of right upper limb (principal); F19.130 Other psychoactive substance abuse with withdrawal, uncomplicated; L02.413 Cutaneous abscess of right upper limb; B95.62 Methicillin resistant Staphylococcus aureus infection as the cause of diseases classified elsewhere; W56.81XA Bitten by other nonvenomous marine animals, initial encounter; Y93.9 Activity, unspecified; Z11.59 Encounter for screening for other viral diseases
CPT/HCPCS: 01810; 36415; 80048; 80053; 80202; 82565; 83605; 85025; 85027; 85610; 85652; 86140; 87040; 87070; 87075; 87077; 87186; 87205; 87635; 93306; 96365; 96375; 99285; A9576; C9803; J0690; J0696; J1170; J1885; J2250; J2270; J2405; J2704; J3010; J3370; J3490; J7060